=== PATIENT | female | born 1960 | race Caucasian/White ===

== ENCOUNTER → 2016-05-26 | Outpatient (CLI) | payer BC ==
[~2016-05-26] MED LIST: ADVIN50/60 INH; ALBUAER19 INH; ATEN50TA8 PO; CLON1TAB3 PO; DICY10CA12 PO; DICY20TA35 PO; ESCI10TA17 PO; ESCI1TAB10 PO; FLUT0.15 NAE; MOME6000; NIFE10CA20 PO; NSNN50 NAE; NXM/40 PO; PANT1TAB48 PO; RANI300T2 PO; SIMV20TA2 PO; SULF800T23 PO; TRET0.023 TD; VNTHFA/IN INH; [UNRECOGNIZED DRUG - CODE] TOP
[2016-05-26 13:20] LABS: BLOOD UREA NITROGEN 12 mg/dl (7-18); BUN/CREATININE RATIO 9.4 (10-20); CALCIUM 8.9 mg/dl (8.5-10.1); CARBON DIOXIDE 26 mmol/L (21-32); CHLORIDE 110 mmol/L (98-107); GLUCOSE 95 mg/dl (70-99); POTASSIUM 4.3 mmol/L (3.5-5.1); SODIUM 143 mmol/L (136-145)
[2016-05-26 13:40] LABS: ALB/GLOB RATIO 1.4 (0.9-2); ALKALINE PHOSPHATASE 52 U/L (45-117); ALT/SGPT 24 U/L (12-78); AST/SGOT 15 U/L (15-37); CHOLESTEROL 167 mg/dl (0-200); CHOLESTEROL/HDL RATIO 2.6; HDL CHOLESTEROL 65 mg/dl; LDL CHOLESTEROL CALCULATED 87 mg/dl; TRIGLYCERIDES 74 mg/dl (0-150); VERY LOW DENSITY LIPOPROT CALC 15 mg/dl
== END ==
LOC: C.LAB 10:11
PROVIDERS: ATTEND Physician Assistant
DX: E78.5 Hyperlipidemia, unspecified (principal)

== ENCOUNTER → 2016-06-23 | Outpatient (CLI) | payer BC ==
[2016-06-23 12:51] LABS: BASO % 0.7 %; BASO ABS # 0.05 K/uL (0-0.2); COMPLETE YES; EOS % 3.5 %; HEMATOCRIT 41.9 % (37-47); IG% 0.1 %; LYMPH % 45.1 %; LYMPH ABS # 3.07 K/uL (1.2-3.4); MEAN CELL VOLUME 92.9 fL (80-100); MEAN CORPUSCULAR HEMOGLOBIN 31.5 pg (25-34); MEAN CORPUSCULAR HGB CONC 33.9 g/dl (32-36); MEAN PLATELET VOLUME 11.3 fL (7.4-10.4); MONO % 8.4 %; NEUT % 42.2 %; PLATELET COUNT 254 K/uL (130-400); RED BLOOD COUNT 4.51 M/uL (4.2-5.4)
--- NOTE | 2016-06-23 12:55 | DIAGNOSTIC IMAGING REPORT ---
ABDOMEN 2 VIEWS CLINICAL HISTORY: K59.09,R10.52 pain COMPARISON STUDY: No previous studies for comparison. FINDINGS: Nonobstructive bowel pattern. Unremarkable mild component of fecal material throughout the colon. No evidence for fecal impaction. IMPRESSION: Negative abdomen. Unremarkable fecal load within the colon. Electronically signed by: Aly Fong M.D. 06/23/2016 12:54 PM Dictated Date/Time: 06/23/2016 12:53 PM
[2016-06-23 13:18] LABS: ALT/SGPT 22 U/L (12-78); BLOOD UREA NITROGEN 15 mg/dl (7-18); BUN/CREATININE RATIO 10.5 (10-20); CARBON DIOXIDE 27 mmol/L (21-32); CHLORIDE 106 mmol/L (98-107); GLUCOSE 85 mg/dl (70-99); POTASSIUM 4.2 mmol/L (3.5-5.1); SODIUM 139 mmol/L (136-145)
[2016-06-23 13:22] LABS: CALCIUM 9.5 mg/dl (8.5-10.1)
[2016-06-23 13:28] LABS: ALB/GLOB RATIO 1.5 (0.9-2); ALKALINE PHOSPHATASE 60 U/L (45-117); AST/SGOT 16 U/L (15-37)
== END | disposition home or self-care (01) ==
LOC: C.RAD 11:31
PROVIDERS: ATTEND Nurse Practitioner Family
DX: K59.09 Other constipation (principal); R10.2 Pelvic and perineal pain

== ENCOUNTER 2016-08-22 10:45 | Emergency (ER) | payer BC ==
[~2016-08-22] VITALS: Ht 167.6 cm; Wt 66.2 kg
[~2016-08-22 10:45] MED LIST changes: -DICY10CA12 PO; -DICY20TA35 PO; -FLUT0.15 NAE; -MOME6000; -NIFE10CA20 PO; -NXM/40 PO; -VNTHFA/IN INH; -[UNRECOGNIZED DRUG - CODE] TOP
[2016-08-22 10:52] VITALS: TEMP 36.8; Ht 167.6 cm; Wt 66.2 kg
[2016-08-22 11:47] LABS: BASO % 0.6 %; BASO ABS # 0.06 K/uL (0-0.2); COMPLETE YES; EOS % 6.5 %; HEMATOCRIT 40.8 % (37-47); IG% 0.2 %; LYMPH % 24.3 %; LYMPH ABS # 2.52 K/uL (1.2-3.4); MEAN CELL VOLUME 92.9 fL (80-100); MEAN CORPUSCULAR HGB CONC 33.3 g/dl (32-36); MEAN PLATELET VOLUME 11.1 fL (7.4-10.4); MONO % 8.6 %; NEUT % 59.8 %; PLATELET COUNT 231 K/uL (130-400); RED BLOOD COUNT 4.39 M/uL (4.2-5.4); WHITE BLOOD COUNT 10.37 K/uL (4.8-10.8)
[2016-08-22] MEDS ORDERED: MOME6000 (11:48)
[2016-08-22] MEDS ORDERED: VNTHFA/IN INH (11:48)
[2016-08-22] MEDS ORDERED: [UNRECOGNIZED DRUG - CODE] TOP (11:50)
[2016-08-22] MEDS ORDERED: NXM/40 PO (11:50)
[2016-08-22] MEDS ORDERED: NIFE10CA20 PO (11:50)
[2016-08-22 11:54] LABS: BUN/CREATININE RATIO 5.6 (10-20); CALCIUM 9.1 mg/dl (8.5-10.1); CREATININE 1.4 mg/dl (0.60-1.20); MAGNESIUM 2.3 mg/dl (1.8-2.4); POTASSIUM 3.9 mmol/L (3.5-5.1)
[2016-08-22 12:05] LABS: ALB/GLOB RATIO 1.4 (0.9-2); THYROID STIMULATING HORMONE 0.843 uIu/ml (0.300-4.500)
[2016-08-22 12:24] LABS: URINE APPEARANCE CLEAR (CLEAR); URINE BILIRUBIN NEG (NEG); URINE COLOR YELLOW; URINE NITRITE NEG (NEG); URINE SPECIFIC GRAVITY 1.008 (1.000-1.030); UROBILINOGEN NEG (NEG); ZZUR CULT IF INDIC CLEAN CATCH NO
[2016-08-22 12:29] LABS: MANUAL MICROSCOPIC REQUIRED? NO; REVIEW REQ? NO
--- NOTE | 2016-08-22 12:58 | DIAGNOSTIC IMAGING REPORT ---
ABDOMEN 2VIEW W/PA CHEST RTN HISTORY:55 yearsFemale acute abdominal pain with diarrhea and nausea. COMPARISON: Abdominal radiographs 06/23/2016. TECHNIQUE: Frontal view of the chest with erect and supine views of the abdomen. FINDINGS: Cardiomediastinal and hilar silhouettes are within normal limits. No pneumothorax, pleural effusion or focal airspace consolidation. Bones are intact. No gross pneumoperitoneum on the upright projection. Bowel gas pattern is nonobstructive. Phleboliths are seen within the pelvis. There is gentle convex left curvature of the lumbar spine. IMPRESSION: 1. Nonobstructive bowel gas pattern without pneumoperitoneum. 2. No acute cardiopulmonary process. The above report was generated using voice recognition software. It may contain grammatical, syntax or spelling errors. Electronically signed by: Maldonado Rivera 08/22/2016 12:57 PM Dictated Date/Time: 08/22/2016 12:55 PM
[2016-08-22] MEDS ORDERED: SODIUM CHLORIDE 0.9% 1000ML 1,000 ML IV STA (13:01)
[2016-08-22] MEDS ORDERED: KETOROLAC TROMETHAMINE 30 MG/ML VIAL IV STA (13:01)
[2016-08-22] MEDS ORDERED: DICYCLOMINE HCL 10 MG CAP PO ONE (13:15)
[2016-08-22] MEDS ORDERED: ONDANSETRON 8 MG/54 ML D5W IV ONE (13:15)
[2016-08-22 13:35] VITALS: O2SAT 96
--- NOTE | 2016-08-22 14:18 | EMERGENCY ROOM VISIT NOTE ---
History Report prepared by Estefanía: Willard Luu Under the Supervision of: Dr. Kristi Teague D.O. First contact with patient: 11:17 Chief Complaint: DIARRHEA Stated Complaint: SEVERE PAIN, BLOATING, DIARHEA Nursing Triage Summary: triage note: pt reprots abd bloating and diarrhea x 3 weeks. pt reports nausea and generalized abd pain. HX diverticulitus History of Present Illness The patient is a 55 year old female who presents to the Emergency Room with complaints of persistent diarrhea beginning three weeks ago. She also complains of abdominal bloating, fevers, chills, abdominal pain, low back pain, and weakness. She feels that she is very dehydrated. The patient describes her stool as "green". She notes that she has stage III kidney disease. She denies any recent travel, medication changes, or trauma. The patient has a history of constipation due to IBS. However has previously had a similar episode of diarrhea. She states that her GI doctor was concerned for C Diff. She notes that she was started on a laxative two months ago for her IBS, but stopped taking it due to the fact that it gave her diarrhea. The patient denies any urinary symptoms. She states that she has had some swelling in her leg, but states that it resolved after taking a water pill. Patient states she is not currently taking any obvious medications. Patient most concerned about her dehydration. Patient has not seen her GI doctor or family doctor within the last 3 weeks despite the persistence of her symptoms. Source of History: patient Onset: three weeks ago Quality: other (diarrhea) Timing: other (persistent) Associated Symptoms: + fevers, + chills, + abdominal pain, + back pain (low) , + weakness Note: The patient also complains of abdominal distension. Review of Systems See HPI for pertinent positives & negatives. A total of 10 systems reviewed and were otherwise negative. Past Medical & Surgical Medical Problems: (1) Asthma, Unspecified (2) Bipolar Disorder, Unspecified (3) Calculus Of Kidney (4) Diverticulitis (5) Diverticulosis (6) History of positive PPD (7) Hyperlipidemia Nec/Nos (8) Hypertension Nos (9) Mitral Valve Disorder (10) Stage III chronic kidney disease Family History FH: lung disease FHx: cancer Hypertension Social History Smoking Status: Current Every Day Smoker Alcohol Use: none Drug Use: none Marital Status: Occupation Status: disabled Current/Historical Medications Scheduled Atenolol (Tenormin), 50 MG PO BID Dicyclomine Hcl (Bentyl), 20 MG PO TID Erythromycin/Benzoyl Peroxide (Erythromycin/Benzoyl Chantelle 5-3 %), 1 APPLN TOP BID Escitalopram (Lexapro), 10 MG PO QAM Escitalopram Oxalate (Lexapro), 20 MG PO QAM Esomeprazole Magnesium (Nexium), 40 MG PO DAILY Nifedipine (Procardia), 10 MG PO BID Simvastatin (Zocor), 20 MG PO HS Scheduled PRN Albuterol Hfa (Ventolin Hfa), 2-4 PUFFS INH Q6H PRN for Wheezing Clonazepam (Klonopin), 1 MG PO BID PRN for PRN Fluticasone Prop/Salmeterol (Advair Diskus 500/50 60 Dose), 1 PUFF INH BID PRN for SOB/Wheezing Miscellaneous Medications Mometasone Furoate (Nasal) (Mometasone Furoate) Allergies Coded Allergies: Levofloxacin (Unverified Allergy, Severe, swelling tongue and throat per [facility], 08/22/16) Montelukast (Verified Allergy, Severe, THROAT SWELLS, 08/22/16) Venlafaxine (Unverified Allergy, Severe, edema airway per [facility] records, 08/22/16) PATIENT STATES TERRIBLE PAIN IN HEAD Gabapentin (Unverified Allergy, Unknown, PSYCH COMPLICATIONS, 08/22/16) Risperidone (Unverified Allergy, Unknown, EDEMA AIRWAY, 08/22/16) Azithromycin (Verified Adverse Reaction, Mild, "DOESN'T AGREE WITH ME", 11/29) Paroxetine (Verified Adverse Reaction, Mild, INCREASED PANIC ATTACKS, 08/22) Physical Exam Vital Signs Date Time Temp Pulse Resp B/P (MAP) Pulse Ox O2 Delivery O2 Flow Rate FiO2 08/22/16 14:40 63 20 123/60 08/22/16 13:35 63 17 126/59 96 Room Air 08/22/16 12:22 63 08/22/16 12:20 63 25 148/103 100 Room Air 08/22/16 10:52 36.8 69 18 128/76 98 Room Air Physical Exam GENERAL: alert, well appearing, well nourished, no distress, non-toxic EYE EXAM: normal conjunctiva, PERRL and EOM's grossly intact OROPHARYNX: no exudate, no erythema, lips, buccal mucosa, and tongue normal and mucous membranes are moist NECK: supple, no nuchal rigidity, no adenopathy, non-tender LUNGS: Clear to auscultation. Normal chest wall mechanics HEART: no murmurs, S1 normal and S2 normal ABDOMEN: abdomen soft, distended, non-tender, normo-active bowel sounds, no masses or organomegaly, no rebound or guarding. BACK: Back is symmetrical on inspection and there is no deformity, no midline tenderness, no CVA tenderness. SKIN: no rashes and no bruising UPPER EXTREMITIES: upper extremities are grossly normal. LOWER EXTREMITIES: No pitting edema. NEURO EXAM: Normal sensorium, cranial nerves II-XII grossly intact, normal speech, no gross weakness of arms, no gross weakness of legs. Medical Decision & Procedures ER Provider Diagnostic Interpretation: Radiology results have been interpreted by the radiologist and reviewed by me. ABDOMEN 2VIEW W/PA CHEST RTN FINDINGS: Cardiomediastinal and hilar silhouettes are within normal limits. No pneumothorax, pleural effusion or focal airspace consolidation. Bones are intact. No gross pneumoperitoneum on the upright projection. Bowel gas pattern is nonobstructive. Phleboliths are seen within the pelvis. There is gentle convex left curvature of the lumbar spine. IMPRESSION: 1. Nonobstructive bowel gas pattern without pneumoperitoneum. 2. No acute cardiopulmonary process. The above report was generated using voice recognition software. It may contain grammatical, syntax or spelling errors. Electronically signed by: Maldonado Rivera Laboratory Results 08/22/16 11:15 Red Blood Count 4.39, Mean Corpuscular Volume 92.9, Mean Corpuscular Hemoglobin 31.0, Mean Corpuscular Hemoglobin Concent 33.3, Mean Platelet Volume 11.1, Neutrophils (%) (Auto) 59.8, Lymphocytes (%) (Auto) 24.3, Monocytes (%) (Auto) 8.6, Eosinophils (%) (Auto) 6.5, Basophils (%) (Auto) 0.6, Neutrophils # (Auto) 6.21, Lymphocytes # (Auto) 2.52, Monocytes # (Auto) 0.89, Eosinophils # (Auto) 0.67, Basophils # (Auto) 0.06 08/22/16 11:15 Test 08/22/16 11:00 08/22/16 11:15 08/22/16 12:05 Urine Color YELLOW Urine Appearance CLEAR (CLEAR) Urine pH 6.0 (4.5-7.5) Urine Specific [place] 1.008 (1.000-1.030) Urine Protein NEG (NEG) Urine Glucose (UA) NEG (NEG) Urine Ketones NEG (NEG) Urine Occult Blood NEG (NEG) Urine Nitrite NEG (NEG) Urine Bilirubin NEG (NEG) Urine Urobilinogen NEG (NEG) Urine Leukocyte Esterase NEG (NEG) White Blood Count 10.37 K/uL (4.8-10.8) Red Blood Count 4.39 M/uL (4.2-5.4) Hemoglobin 13.6 g/dL (12.0-16.0) Hematocrit 40.8 % (37-47) Mean Corpuscular Volume 92.9 fL (80-100) Mean Corpuscular Hemoglobin 31.0 pg (25-34) Mean Corpuscular Hemoglobin Concent 33.3 g/dl (32-36) Platelet Count 231 K/uL (130-400) Mean Platelet Volume 11.1 fL (7.4-10.4) Neutrophils (%) (Auto) 59.8 % Lymphocytes (%) (Auto) 24.3 % Monocytes (%) (Auto) 8.6 % Eosinophils (%) (Auto) 6.5 % Basophils (%) (Auto) 0.6 % Neutrophils # (Auto) 6.21 K/uL (1.4-6.5) Lymphocytes # (Auto) 2.52 K/uL (1.2-3.4) Monocytes # (Auto) 0.89 K/uL (0.11-0.59) Eosinophils # (Auto) 0.67 K/uL (0-0.5) Basophils # (Auto) 0.06 K/uL (0-0.2) RDW Standard Deviation 47.0 fL (36.4-46.3) RDW Coefficient of Variation 13.7 % (11.5-14.5) Immature Granulocyte % (Auto) 0.2 % Immature Granulocyte # (Auto) 0.02 K/uL (0.00-0.02) Anion Gap 8.0 mmol/L (3-11) Est Creatinine Clear Calc Drug Dose 42.0 ml/min Estimated GFR () 48.6 Estimated GFR (Non- 41.9 BUN/Creatinine Ratio 5.6 (10-20) Calcium Level 9.1 mg/dl (8.5-10.1) Magnesium Level 2.3 mg/dl (1.8-2.4) Total Bilirubin 0.5 mg/dl (0.2-1) Aspartate Amino Transf (AST/SGOT) 17 U/L (15-37) Alanine Aminotransferase (ALT/SGPT) 19 U/L (12-78) Alkaline Phosphatase 60 U/L (45-117) Total Protein 7.1 gm/dl (6.4-8.2) Albumin 4.1 gm/dl (3.4-5.0) Globulin 3.0 gm/dl (2.5-4.0) Albumin/Globulin Ratio 1.4 (0.9-2) Lipase 170 U/L (73-393) Thyroid Stimulating Hormone (TSH) 0.843 uIu/ml (0.300-4.500) Lactic Acid Level 0.7 mmol/L (0.4-2.0) Laboratory results per my review. Medications Administered Medications (Trade) Dose Ordered Sig/Kate Route Start Time Stop Time Status Last Admin Dose Admin Sodium Chloride 1,000 ml @ 999 mls/hr Q1H1M STAT IV 08/22/16 13:01 08/22/16 14:01 DC 08/22/16 13:15 999 MLS/HR Ketorolac Tromethamine (Toradol Inj) 30 mg NOW STAT IV 08/22/16 13:01 08/22/16 13:04 DC 08/22/16 13:13 30 MG Dicyclomine HCl (Bentyl Cap) 20 mg NOW ONCE PO 08/22/16 13:15 08/22/16 13:16 DC 08/22/16 13:12 20 MG Ondansetron HCl (Zofran 8mg Iv) 8 mg NOW ONCE IV 08/22/16 13:15 08/22/16 13:16 DC 08/22/16 13:13 8 MG ED Course 1120: The patient was evaluated in room C6. A complete history and physical exam was performed. 1301: Ordered Toradol Inj 30 mg IV, Sodium Chloride 1000 ml @ 999 mls/hr IV. 1315: Ordered Zofran 8 mg IV, Bentyl Cap 20 mg PO. 1405: Upon reevaluation, the patient is feeling better. I discussed the findings and the treatment plan with the patient. She verbalizes agreement and understanding. The patient was discharged home. Medical Decision Differential diagnosis: Etiologies such as appendicitis, diverticulitis, PUD, biliary pathology, UTI, pancreatitis, obstruction, mesenteric ischemia, aortic pathology, infections, inflammatory bowel disease, renal colic, as well as others were entertained. Blood pressure screening: Patient was found to have a slightly elevated blood pressure due to circumstances. I do not believe that the patient requires hypertension monitoring. Medication Reconciliation: I attest that I have personally reviewed the patient' s current medication list. Patient well-appearing here despite complaints, not clinically severely dehydrated. Vital signs stable throughout. Patient with no episodes of diarrhea while monitored in the emergency room. Discussed with patient close follow-up with her GI specialist given her history of IBS and her complaints of diarrhea. Discussed possible need for additional imaging versus colonoscopy. Discussed with patient symptoms to watch and return for. Patient felt better following antispasmodic dictation, we'll discharge with prescription for Bentyl. No evidence of bacteremia/sepsis, patient's abdomen soft and nontender , doubt mesenteric ischemia, ischemic colitis, bowel obstruction, perforation, volvulus, GI bleed. Patient's labs not consistent with C. difficile. Patient verbalized understanding of all of this, questions answered bedside, and she was agreeable with plan. Impression Primary Impression: Abdominal pain Additional Impression: Diarrhea Scribe Attestation The scribe's documentation has been prepared under my direction and personally reviewed by me in its entirety. I confirm that the note above accurately reflects all work, treatment, procedures, and medical decision making performed by me. Departure Information Dispostion Home / Self-Care Prescriptions Dicyclomine Hcl (BENTYL) 20 Mg Tab 20 MG PO TID for Pain, #20 TAB Prov: Kristi Teague, 08/22/16 Referrals Rodolfo Toledo M.D. (PCP) Patient Instructions My [facility] Additional Instructions Please call and follow-up with your GI specialist regarding the persistence of your diarrhea. You may use the bowel spasm medication as prescribed. Please try to sip clear liquids at frequent intervals to stay well-hydrated. You may eat as tolerated. If you develop any worsening pain, have vomiting, noticed black or bloody stools, develop fevers or chills, feels though you're going to faint, or you have any other new concerns, please return the emergency room. Problem Qualifiers Primary Impression: Abdominal pain Abdominal location: generalized Qualified Codes: R10.84 - Generalized abdominal pain Additional Impression: Diarrhea Diarrhea type: unspecified type Qualified Codes: R19.7 - Diarrhea, unspecified
[2016-08-22] MEDS ORDERED: DICY20TA35 PO (14:26)
[2016-08-22 14:40] VITALS: BP 123/60; PULSE 63
[2016-10-07] MEDS ORDERED: DICY10CA12 PO (08:00)
[2016-10-07] MEDS ORDERED: FLUT0.15 NAE (08:00)
[2016-10-07] MEDS ORDERED: SULF800T23 PO (08:00)
== END 2016-08-22 14:45 | disposition home or self-care (01) ==
LOC: C.EDB 10:47 → C.EDC 14:45
DX: R10.9 Unspecified abdominal pain (principal); R19.7 Diarrhea, unspecified; E78.5 Hyperlipidemia, unspecified; I34.1 Nonrheumatic mitral (valve) prolapse; I12.9 Hypertensive chronic kidney disease with stage 1 through stage 4 chronic kidney disease, or unspecified chronic kidney disease; N18.3 Chronic kidney disease, stage 3 (moderate); F31.9 Bipolar disorder, unspecified; J45.909 Unspecified asthma, uncomplicated; K57.90 Diverticulosis of intestine, part unspecified, without perforation or abscess without bleeding; K57.92 Diverticulitis of intestine, part unspecified, without perforation or abscess without bleeding; F17.200 Nicotine dependence, unspecified, uncomplicated; Z79.899 Other long term (current) drug therapy; Z88.1 Allergy status to other antibiotic agents; Z88.8 Allergy status to other drugs, medicaments and biological substances; Z80.9 Family history of malignant neoplasm, unspecified; Z82.49 Family history of ischemic heart disease and other diseases of the circulatory system

== ENCOUNTER → 2016-08-24 | Outpatient (CLI) | payer BC ==
[~2016-08-24] MED LIST changes: -ALBUAER19 INH; +DICY10CA12 PO; +DICY20TA35 PO; +FLUT0.15 NAE; +MOME6000; +NIFE10CA20 PO; -NSNN50 NAE; +NXM/40 PO; -PANT1TAB48 PO; -RANI300T2 PO; -TRET0.023 TD; +VNTHFA/IN INH; +[UNRECOGNIZED DRUG - CODE] TOP
--- NOTE | 2016-08-24 09:35 | DIAGNOSTIC IMAGING REPORT ---
PA CHEST WITH ABDOMINAL SERIES CLINICAL HISTORY: Diarrhea. FINDINGS: A PA chest radiograph is compared to study dated 08/22/2016. The cardiomediastinal silhouette is unremarkable. The lungs and pleural spaces are clear. No pneumothorax is seen. The bony thorax is grossly intact. Supine and erect abdominal radiographs are compared to study dated 08/22/2016 and correlated with abdominal CT dated 03/27/2014. There is a nonobstructed abdominal bowel gas pattern. No evidence of intraperitoneal free air is seen. There are no abnormal abdominal calcifications. Phleboliths are observed in the pelvis. The lumbosacral spine and bony pelvis appear intact. IMPRESSION: 1. No active disease in the chest. 2. Nonobstructed abdominal bowel gas pattern. Electronically signed by: Bhavesh Telles M.D. 08/24/2016 9:34 AM Dictated Date/Time: 08/24/2016 9:31 AM
== END | disposition home or self-care (01) ==
LOC: C.RAD 08:46
PROVIDERS: ATTEND Internal Medicine Gastroenterology
DX: R19.7 Diarrhea, unspecified (principal)

== ENCOUNTER → 2016-10-11 | Outpatient (CLI) | payer BC ==
[~2016-10-11] MED LIST changes: -DICY20TA35 PO; -ESCI10TA17 PO; -MOME6000
--- NOTE | 2016-10-11 16:08 | MAMMOGRAPHY REPORT ---
BILATERAL DIGITAL SCREENING MAMMOGRAM WITH CAD: 10/11/2016 CLINICAL HISTORY: Routine screening. Patient has no complaints. TECHNIQUE: Bilateral CC and MLO views of the breasts with and without implant displacement views were obtained. Current study was also evaluated with a Computer Aided Detection (CAD) system. COMPARISON: Comparison is made to exams dated: 10/09/2015 mammogram, 10/06/2014 mammogram, 03/13/2014 m ammogram, 09/02/2013 mammogram, 08/31/2012 mammogram, and 08/31/2011 mammogram - [facility]. BREAST COMPOSITION: There are scattered areas of fibroglandular density in both breasts. FINDINGS: Bilateral subpectoral saline implants are intact. There are stable benign-appearing calci fications in both breasts. No new suspicious mass, architectural distortion or cluster of microcalci fications is seen. IMPRESSION: ACR BI-RADS CATEGORY 1: NEGATIVE There is no mammographic evidence of malignancy. A 1 year screening mammogram is recommended. The pa tient will receive written notification of the results. Approximately 10% of breast cancers are not detected with mammography. A negative mammographic report should not delay biopsy if a clinically suggestive mass is present. Tabby Rosales M.D. ay/:10/11/2016 15:04:39 Timber Setter: Citlali CAIN)(Suzette)(BD), [facility] letter sent: Normal 1/2 BI-RADS Code: ACR BI-RADS Category 1: Negative
== END | disposition home or self-care (01) ==
LOC: C.MAMM 09:34
PROVIDERS: ATTEND Family Medicine
DX: Z12.31 Encounter for screening mammogram for malignant neoplasm of breast (principal)

== ENCOUNTER → 2016-10-13 | Outpatient (CLI) | payer BC ==
--- NOTE | 2016-10-13 10:31 | DIAGNOSTIC IMAGING REPORT ---
KUB CLINICAL HISTORY: Abdominal pain and distention. COMPARISON STUDY: 08/24/2016 FINDINGS: There is no pathologic bowel dilatation. There are no transition zone to indicate bowel obstruction. The renal shadows are partially obscured overlying bowel gas and fecal material. No definite renal calculi are visualized. Multiple pelvic basin calcifications remain similar and likely represent phleboliths. IMPRESSION: No evidence of pathologic bowel dilatation. Electronically signed by: Gustavo Rosas M.D. 10/13/2016 10:30 AM Dictated Date/Time: 10/13/2016 10:29 AM
== END | disposition home or self-care (01) ==
LOC: C.RAD 09:48
PROVIDERS: ATTEND Nurse Practitioner Family
DX: R10.9 Unspecified abdominal pain (principal); K59.00 Constipation, unspecified; R19.7 Diarrhea, unspecified

== ENCOUNTER → 2016-10-19 | Day surgery (SDC) | payer BC ==
[2016-10-07 08:01] VITALS: Ht 165.1 cm; Wt 61.4 kg
[~2016-10-19] VITALS: Ht 165.1 cm; Wt 61.4 kg
[~2016-10-19] MED LIST changes: +LIDOCAINE HCL 2% 2 ML VIAL (20MG/ML) ONE; +PROPOFOL IV EMULSION 10 MG/ML 20 ML VIAL IV ONE; +SODIUM CHLORIDE 0.9% 500ML 500 ML IV ONE
--- NOTE | 2016-10-19 09:21 | Endo History and Physical ---
History & Physical Date of Service: Oct 19, 2016. Chief Complaint: chronic diarrhea,epigastric pain and nausea,vomiting Referring Physician: Dr. Rodolfo Toledo History of Present Illness 56 yo presenting with c/o chronic nausea, vomiting, and diarrhea. No alarm symptoms. Past Medical History Other Psy. Disorders, Asthma, Gastrointestinal Disorder, Anxiety, Reflux, Gynecological Problems, High Cholesterol, Heart Disease, Hypertension, Kidney Disease, Depression Past Surgical History Hx Cardiac Surgery: No Hx Internal Defibrillator: No Hx Pacemaker: No Hx Abdominal Surgery: Yes (TUBAL LIGATION) Hx of Implantable Prosthesis: No Hx Post-Op Nausea and Vomiting: No Hx Cancer Surgery: No Hx Thoracic Surgery: No Hx Orthopedic: No Hx Urinary Tract Surgery: No Family History None Social History Smoking Status: Current Every Day Smoker Hx Substance Use: No Hx Alcohol Use: No Allergies Coded Allergies: Levofloxacin (Verified Allergy, Severe, swelling tongue and throat per [facility], 10/19/16) Montelukast (Verified Allergy, Severe, THROAT SWELLS, 10/07/16) Venlafaxine (Verified Allergy, Severe, edema airway per [facility] records, 10/19/16) PATIENT STATES TERRIBLE PAIN IN HEAD Gabapentin (Verified Allergy, Unknown, PSYCH COMPLICATIONS, 10/19/16) Risperidone (Verified Allergy, Unknown, EDEMA AIRWAY, 10/19/16) Azithromycin (Verified Adverse Reaction, Mild, "DOESN'T AGREE WITH ME", ) Paroxetine (Verified Adverse Reaction, Mild, INCREASED PANIC ATTACKS, 10/07) Current Medications Reported Home Medications Medications Dose Route/Sig Max Daily Dose Days Date Category Flonase Allergy Relief (Fluticasone Propionate (Nasal)) 50 Mcg/Act Spr 2 [place] LUZ DAILY 10/07/16 Reported Dicyclomine Hcl 10 Mg Cap 1 Cap PO TID PRN 10/07/16 Reported Bactrim Ds 800MG/160MG (Trimethoprim/Sulfamethoxazole) Tab 1 Tab PO BID 10/07/16 Reported Erythromycin/Benzoyl Chantelle 5-3 % (Erythromycin/Benzoyl Peroxide) 23.3 Gm Gel 1 Appln TOP BID 08/22/16 Reported Procardia (Nifedipine) 10 Mg Cap 10 Mg PO TID 08/22/16 Reported Nexium (Esomeprazole Magnesium) 40 Mg Capcr 40 Mg PO QAM 08/22/16 Reported Ventolin Hfa (Albuterol) 200 Puffs/13064 Mcg Aers 2-4 Puffs INH Q6H PRN 08/22/16 Reported Lexapro (Escitalopram Oxalate) 20 Mg Tab 1.5 Tab PO QAM 12/25/14 Reported Advair Diskus 500/50 60 Dose (Fluticasone Prop/Salmeterol) 1 Ea Aerp 1 Puff INH BID PRN 04/28/13 Reported Zocor (Simvastatin) 20 Mg Tab 20 Mg PO HS 01/12/11 Reported Tenormin (Atenolol) 50 Mg Tab 50 Mg PO BID 11/16/09 Reported Klonopin (Clonazepam) 1 Mg Tab 1 Mg PO TID PRN 10/22/09 Reported Vital Signs Weight (Kilograms): 61.36 Height (Feet): 5 Height (Inches): 5 Date Time Temp Pulse Resp B/P (MAP) Pulse Ox O2 Delivery O2 Flow Rate FiO2 10/19/16 09:08 36.8 50 18 130/67 (88) 98 Room Air Physical Exam General Appearance: WD/WN, no apparent distress Respiratory/Chest: Respiratory effort: no dyspnea Auscultation: breath sounds normal, CTA except as noted, no wheezing Cardiovascular: Apical Impulse: not displaced Heart Auscultation: RRR, normal S1, normal S2 Abdomen: Bowel Sounds: normal Inspection & Palpation: soft, non-distended Assessment and Plan 56 yo presenting for EGD/Colonoscopy-for nausea, vomiting, and diarrhea
--- NOTE | 2016-10-19 09:59 | Discharge Instructions ---
Endoscopy Patient Instructions Date / Procedure(s) Performed Oct 19, 2016. Colonoscopy, EGD Allergy Information Coded Allergies: Levofloxacin (Verified Allergy, Severe, swelling tongue and throat per [facility], 10/19/16) Montelukast (Verified Allergy, Severe, THROAT SWELLS, 10/07/16) Venlafaxine (Verified Allergy, Severe, edema airway per [facility] records, 10/19/16) PATIENT STATES TERRIBLE PAIN IN HEAD Gabapentin (Verified Allergy, Unknown, PSYCH COMPLICATIONS, 10/19/16) Risperidone (Verified Allergy, Unknown, EDEMA AIRWAY, 10/19/16) Azithromycin (Verified Adverse Reaction, Mild, "DOESN'T AGREE WITH ME", ) Paroxetine (Verified Adverse Reaction, Mild, INCREASED PANIC ATTACKS, 10/07) Discharge Date / Findings Oct 19, 2016. Normal EGD-biopsies were taken Colonoscopy-average prep quality, diverticula and hemorrhoids Provider Instructions Activity Restrictions - No exercising or heavy lifting for 24 hours. - Do not drink alcohol the day of the procedure. - Do not drive a car or operate machinery until the day after the procedure. - Do not make any important decisions or sign important papers in 24 hours after the procedure. Following Day: - Return to full activity which may include returning to work/school. Diet Start your diet with liquids and light foods (jello, soup, juice, toast). Then eat your usual diet if not nauseated. Treatment For Common After Affects For mild abdominal pain, bloating, or excessive gas: - Rest - Eat lightly - Lie on right side Follow-Up Information Follow-up with Dr. Rodolfo Toledo as scheduled Anesthesia Information What You Should Know You have had a procedure that required some medicine to reduce anxiety and discomfort. This treatment is called moderate sedation. After receiving the treatment, you may be sleepy, but you will be able to breathe on your own. The effects of the treatment may last for several hours. Follow these instructions along with Activity/Diet recommendations noted above: * Do NOT do anything where dizziness or clumsiness would be dangerous. * Rest quietly at home today, then you can be up and about tomorrow. * Have a responsible person stay with you the rest of today. * You may have had an I.V. today. If so, you may take the dressing off later today. Recommendations Call your doctor if: * Trouble breathing * Continuous vomiting for more than 24 hours * Temperature above 101 degrees * Severe abdominal pain or bloating * Pain not relieved by pain medicine ordered * There is increased drainage or redness from any incision * A large amount of rectal bleeding greater than 2-3 tablespoons. (If you had a polyp/s removed or have hemorrhoids, a small amount of blood - from the rectum is to be expected.) * You have any unanswered questions or concerns. IN THE EVENT OF A SERIOUS EMERGENCY, GO TO THE NEAREST EMERGENCY ROOM Your discharge instructions were prepared by provider Jean-Claude Carrasco. Patient Instructions Signature Page Mary [place] Patient (or Guardian) Signature/Date: I have read and understand the instructions given to me by my caregivers. Caregiver/RN/Doctor Signature/Date: The above-named patient and/or guardian has received patient instructions on this date. + Original Patient Signature Page (only) stays with chart. Please make copy for patient.
--- NOTE | 2016-10-19 10:02 | GI REPORT ---
Procedure Date: 10/19/2016 9:14 AM Procedure: Upper GI endoscopy Indications: Nausea with vomiting Medicines: General Anesthesia Complications: No immediate complications. Estimated blood loss: None. Estimated Blood Loss: Estimated blood loss: none. Procedure: Pre-Anesthesia Assessment: - Pre-Anesthesia Assessment: - Prior to the procedure, a History and Physical was performed, and patient medications, allergies and sensitivities were reviewed. The patient's tolerance of previous anesthesia was reviewed. Please see [employer] for complete details. - The risks and benefits of the procedure and the sedation options and risks were discussed with the patient. All questions were answered and informed consent was obtained. - Patient identification and proposed procedure were verified prior to the procedure by the physician and the nurse. The procedure was verified in the pre-procedure area in the procedure room. After obtaining informed consent, the endoscope was passed carefully and meticuously under direct vision and only advanced when the lumen was clearly identified, C02 insuflation was utilized throughout the entirity of the procedure. Throughout the procedure, the patient's blood pressure, pulse, and oxygen saturations were monitored continuously. After obtaining informed consent, the endoscope was passed under direct vision. Throughout the procedure, the patient's blood pressure, pulse, and oxygen saturations were monitored continuously. The scope was introduced through the mouth, and advanced to the second part of duodenum. The upper GI endoscopy was accomplished without difficulty. The patient tolerated the procedure well. Findings: The examined esophagus was normal. The entire examined stomach was normal. Biopsies were taken with a cold forceps for histology. The examined duodenum was normal. Biopsies for histology were taken with a cold forceps for evaluation of celiac disease. Impression: - Normal esophagus. - Normal stomach. Biopsied. - Normal examined duodenum. Biopsied. Recommendation: - Await pathology results. - Discharge patient to home (with escort). - Continue present medications and diet. Jean-Claude Carrasco MD 10/19/2016 10:01:50 AM This report has been signed electronically. Note Initiated On: 10/19/2016 9:14 AM I attest to the content of the Intraoperative Record and orders documented therein, exceptions below
--- NOTE | 2016-10-19 10:05 | GI REPORT ---
Procedure Date: 10/19/2016 9:37 AM Procedure: Colonoscopy Indications: Chronic diarrhea Medicines: General Anesthesia Complications: No immediate complications. Estimated blood loss: None. Estimated Blood Loss: Estimated blood loss: none. Procedure: Pre-Anesthesia Assessment: - Pre-Anesthesia Assessment: - Prior to the procedure, a History and Physical was performed, and patient medications, allergies and sensitivities were reviewed. The patient's tolerance of previous anesthesia was reviewed. Please see [facility] for complete details. - The risks and benefits of the procedure and the sedation options and risks were discussed with the patient. All questions were answered and informed consent was obtained. - Patient identification and proposed procedure were verified prior to the procedure by the physician and the nurse. The procedure was verified in the pre-procedure area in the procedure room. After obtaining informed consent, the endoscope was passed carefully and meticuously under direct vision and only advanced when the lumen was clearly identified, C02 insuflation was utilized throughout the entirity of the procedure. Throughout the procedure, the patient's blood pressure, pulse, and oxygen saturations were monitored continuously. After I obtained informed consent, the scope was passed under direct vision. Throughout the procedure, the patient's blood pressure, pulse, and oxygen saturations were monitored continuously. The scope was introduced through the anus and advanced to the cecum, identified by appendiceal orifice and ileocecal valve. The colonoscopy was performed without difficulty. The patient tolerated the procedure well. The quality of the bowel preparation was fair. Findings: Multiple small-mouthed diverticula were found in the sigmoid colon. Internal hemorrhoids were found during retroflexion. Biopsies for histology were taken with a cold forceps from the entire colon for evaluation of microscopic colitis. The exam was otherwise without abnormality on direct and retroflexion views. Impression: - Diverticulosis in the sigmoid colon. - Internal hemorrhoids. - The examination was otherwise normal on direct and retroflexion views. - Biopsies were taken with a cold forceps from the entire colon for evaluation of microscopic colitis. Recommendation: - Discharge patient to home (with escort). - Repeat colonoscopy in 10 years for screening purposes. - Return to referring physician as previously scheduled. - Consider fiber supplementation. Jean-Claude Carrasco MD 10/19/2016 10:04:31 AM This report has been signed electronically. Note Initiated On: 10/19/2016 9:37 AM I attest to the content of the Intraoperative Record and orders documented therein, exceptions below
[2016-10-19 10:27] VITALS: BP 139/76; PULSE 54; O2SAT 100
--- NOTE | 2016-10-19 10:45 | Anesthesiology Progress Note ---
Anesthesia Post Op Note Date & Time Oct 19, 2016 at 10:45 Vital Signs Pain Intensity: 3 Vital Signs Past 12 Hours Date Time Temp Pulse Resp B/P (MAP) Pulse Ox O2 Delivery O2 Flow Rate FiO2 10/19/16 10:27 54 16 139/76 (97) 100 Room Air 10/19/16 10:12 62 16 119/70 (86) 100 Room Air 10/19/16 09:57 54 16 104/64 (77) 98 Room Air 10/19/16 09:08 36.8 50 18 130/67 (88) 98 Room Air Notes Mental Status: alert / awake / arousable, participated in evaluation Pt Amnestic to Procedure: Yes Nausea / Vomiting: adequately controlled Pain: adequately controlled Airway Patency, RR, SpO2: stable & adequate BP & HR: stable & adequate Hydration State: stable & adequate Anesthetic Complications: no major complications apparent
== END | disposition home or self-care (01) ==
LOC: C.GI 08:39
PROVIDERS: ATTEND Internal Medicine
DX: K52.9 Noninfective gastroenteritis and colitis, unspecified (principal); K64.8 Other hemorrhoids; K63.89 Other specified diseases of intestine; K57.30 Diverticulosis of large intestine without perforation or abscess without bleeding; R10.13 Epigastric pain; R11.2 Nausea with vomiting, unspecified; K21.9 Gastro-esophageal reflux disease without esophagitis; E78.00 Pure hypercholesterolemia, unspecified; I12.9 Hypertensive chronic kidney disease with stage 1 through stage 4 chronic kidney disease, or unspecified chronic kidney disease; N18.9 Chronic kidney disease, unspecified; F32.9 Major depressive disorder, single episode, unspecified; F17.200 Nicotine dependence, unspecified, uncomplicated

== ENCOUNTER 2018-11-28 13:07 | Inpatient (IN) ==
[2018-11-28] MEDS ORDERED: ACETAMINOPHEN 325 MG TAB PO PRN (13:28)
[2018-11-28] MEDS ORDERED: ALBUTEROL HFA 8 GM INHALER INH PRN (14:47)
[2018-11-28] MEDS ORDERED: CYCLOBENZAPRINE HCL 10 MG TAB PO PRN (14:47)
[2018-11-28] MEDS ORDERED: DICYCLOMINE HCL 10 MG CAP PO PRN (14:47)
--- NOTE | 2018-11-28 14:58 | History & Physical Report ---
Date of Service November 28, 2018 Assessment & Plan (1) Diverticulitis: (2) Abdominal pain: Pt is 58 y/o F with PMH HTN, dyslipidemia, bipolar depression, CKD III, GERD, h/o lymphocytic colitis, asthma presented for abdominal pain and diverticulitis x 1 month. Initially with fever/chills. N/V, lower abddominal pain has continued. 10/26/[address] abdomen pelvis which showed possible diverticulitis and was started on Augmentin 875 twice daily. 10/29/2018 Flagyl was added. 11/20/2018 still having lower quadrant pain and was started on Cipro and Flagyl and had WBC:10. 11/22/[address] abdomen pelvis which showed diverticulitis descending colon with no abscess or perforation noted. Today Pt afebrile, vitals stable. WBC: 8. KUB: Nonobstructive bowel gas pattern. -Stool cultures pending -IVF -Zosyn -Stool cultures, C-diff pending -Clear liquid diet -If no improvement or worsening symptoms obtain further imaging, however will hold on CT abd/pelvis since has had 2 in past month -GI consult -CBC, BMP in am (3) Lymphocytic colitis: H/O lymphocytic colitis. Hx esophageal spasms. -Continue nifedipine (4) HTN (hypertension): -Continue atenolol (5) Dyslipidemia: -Continue statin (6) Stage III chronic kidney disease: Cr: 1.2. Baseline Cr ~1.1 -Monitor renal functions -Avoid nephrotoxic agents when possible (7) Asthma: Stable -Continue Advair, Singulair. Continue albuterol (8) GERD (gastroesophageal reflux disease): -Continue PPI (9) Bipolar depression: -Continue Lexapro, Klonopin HS (10) Tobacco use: Reports has cut back to several cigarettes a day -Nicotine patch -Smoking cessation encouraged DVT Prophylaxis -SCDs Follows with Dr Zhang for routine care Pt was seen and care coordinated with Dr Santos. See addendum History of Present Illness Chief Complaint: Abdominal pain Primary Care Provider: Vishnu Zhang MD Pt is 58 y/o F with PMH HTN, dyslipidemia, bipolar depression, CKD III, GERD, h/o lymphocytic colitis, asthma presented as direct admission for abdominal pain and diverticulitis. Patient was seen in ER on 10/26/2018 for fever, chills, nausea, vomiting, left flank pain and had CT abdomen pelvis which showed possible diverticulitis and was started on Augmentin 875 twice daily. Patient states took that for a few days. Followed up with PCP 10/29/2018 for continued lower abdominal pain and Flagyl was added. Seen by PCP 11/20/2018 still having lower quadrant pain and was started on Cipro and Flagyl and had WBC:10. 11/22/[address] abdomen pelvis which showed diverticulitis descending colon with no abscess or perforation noted. Patient reports has had continued lower abdominal pain which she describes as fairly consistent with intermittent sharp episodes. Also reports lower back aching which has been intermittent. Reports nausea and intermittent vomiting. Complains of diarrhea. Initially had fever in October which has resolved but reports continued chills. Reports in past has had abdominal bloating with colitis. States taking nifedpine for throat spasms. Denies diaphoresis, hematemesis, melena, hematochezia, CALDERA, dizziness, syncope, vision changes, neck pain, CP, SOB, orthopnea, palpitations, cough, sore throat, choking, otalgia, rhinorrhea, paresthesias, weakness, extremity weakness, extremity edema, rashes, urinary symptoms. 10/19/2016: Colonoscopy: Multiple diverticula in sigmoid colon, internal hemorrh oids 10/19/2016: EGD: Normal esophagus and stomach and duodenum. Allergies Allergy/AdvReac Type Severity Reaction Status Date / Time levofloxacin Allergy Severe swelling Verified 10/26/18 11:42 tongue [address] throat [address] [facility] montelukast Allergy Severe THROAT Verified 10/26/18 11:42 SWELLS venlafaxine Allergy Severe edema Verified 10/26/18 11:42 airway per [facility] records gabapentin Allergy Unknown PSYCH Verified 10/26/18 11:42 COMPLICATIONS risperidone Allergy Unknown EDEMA Verified 10/26/18 11:42 AIRWAY mivacurium AdvReac Mild "DOESN'T Verified 10/26/18 11:42 AGREE WITH ME" paroxetine AdvReac Mild INCREASED Verified 10/26/18 11:42 PANIC ATTACKS Azithromycin PACK Allergy Unknown Uncoded 10/26/18 11:42 Home Medications Home Medications Medication Instructions Recorded Confirmed Type atenolol 50 mg PO BID 10/26/18 11/28/18 History dicyclomine 10 mg PO TID PRN 10/26/18 11/28/18 History fluticasone propionate 2 spray INTRANASAL DAILY 10/26/18 11/28/18 History ondansetron HCl [Zofran] 4 mg PO Q6H PRN #10 tab 10/26/18 11/28/18 Rx rosuvastatin 20 mg PO HS 10/26/18 11/28/18 History albuterol sulfate 2 puff INHALATION QID PRN 11/28/18 11/28/18 History clonazepam 2 mg PO HS 11/28/18 11/28/18 History cyclobenzaprine 10 mg PO HS PRN 11/28/18 11/28/18 History escitalopram oxalate 20 mg PO DAILY 11/28/18 11/28/18 History esomeprazole magnesium 40 mg PO DAILY 11/28/18 11/28/18 History fluticasone propion-salmeterol 2 inh INHALATION DAILY 11/28/18 11/28/18 History [Advair Diskus] montelukast 10 mg PO PM 11/28/18 11/28/18 History nifedipine 10 mg PO TIDM 11/28/18 11/28/18 History Past Med/Surg History Medical History Tobacco use (Chronic) Lymphocytic colitis (Chronic) GERD (gastroesophageal reflux disease) (Chronic) Bipolar depression (Chronic) Dyslipidemia (Chronic) HTN (hypertension) (Chronic) Asthma (Chronic) Adnexal mass (Resolved) "? dermoid noted on CT pelvis 11/14/13" History of positive PPD (Chronic) "treated with ? INH" Diverticulosis (Chronic) Abdominal pain (Acute) Stage III chronic kidney disease (Chronic) Surgical History Hx of tonsillectomy (Chronic) History of esophagogastroduodenoscopy (EGD) (Chronic) 10/19/16 - normal esophagus, stomach and duodenum History of colonoscopy (Chronic) 10/19/16 - multiple diverticula in sigmoid colon, internal hemorrhoids No pertinent past surgical history Family History Other Cancer Heart disease Hypertension Kidney disease Social History Preferred Language: Sammarinese Communication Ability: Effective Dental Floss Packer Required: No Beliefs That Will Affect Care: None Current Living Situation: Spouse Other Information That Helps Us Care for You: No Feels Safe at Home: Yes Safety Concerns: Feels Safe At This Time Smoking Status: Current every day smoker Tobacco Type: cigarettes ; Cigarettes Per Day: 4-5 a day ; Do You Dip or Chew Tobacco: No ; Second Hand Exposure: No ; Tobacco Cessation Education Requested by Patient: No Hx Alcohol Use: No Hx Substance Use: No Review of Systems Review of Systems: All systems reviewed & are unremarkable except as noted in HPI & below Physical Exam Physical Exam: General: no distress, WDWN Head: normocephalic, atraumatic Eyes: conjunctiva non-injected, anicteric ENT: normal inspection external ears, nose, mucous membranes moist Neck: supple, trachea midline Lungs: clear, no respiratory distress, no wheezing/rhonchi/rales CV: RRR, no murmur, no pretibial edema Abd: normal BS, soft, diffuse tenderness to palpation Ext: no cyanosis, no calf tenderness Neuro: A&O x 3, no focal deficits noted, normal affect Skin: warm, dry Results & Data Vital Signs (Past 12 Hours) Vital Signs Temp Pulse Resp BP Pulse Ox 11/28/18 14:32 37 C 53 L 16 138/79 98 Laboratory Results Short CBC 11/28/18 Range/Units 14:54 WBC 8.21 (4.8-10.8) K/uL Hgb 14.0 (12.0-16.0) g/dL Hct 41.4 (37-47) % Plt Count 254 (130-400) K/uL BMP 11/28/18 14:54 Sodium 138 Potassium 3.6 Chloride 107 Carbon Dioxide 26 BUN 13 Creatinine 1.25 H Glucose 81 Calcium 9.0 Liver Function 11/28/18 Range/Units 14:54 Total Bilirubin 0.4 (0.2-1) mg/dl AST 18 (15-37) U/L ALT 17 (12-78) U/L Alkaline Phosphatase 55 (45-117) U/L Albumin 3.7 (3.4-5.0) gm/dl Diagnostic Findings KUB: IMPRESSION: Nonobstructive bowel gas pattern. Code Status & VTE Plan VTE Prophylaxis Plan VTE Prophylaxis will be ordered: Yes Supervising Physician Co-Signing Physician Notes Patient is a 58-year-old female with history of lymphocytic colitis, bipolar disorder, depression and other problems presents with history of abdominal pain, nausea, vomiting, diarrhea, abdominal bloating and chills. Patient has been on Augmentin and later transitioned to Cipro floxacillin and Flagyl by PCP for uncomplicated diverticulitis noted on CAT scan. Patient states that her symptoms have not resolved despite the antibiotics. Currently she denies any blood in stools. Please review HPI for complete details of presentation. On exam patient is moderately built and nourished, no apparent distress, normocephalic atraumatic, lungs are clear to auscultation, S1-S2, no murmur, abdomen soft, diffuse tenderness on palpation, no guarding or rigidity, bowel sounds are present, grossly no focal neurological deficits, no pedal edema. Patient is admitted for management of diverticulitis. Failed outpatient antibiotic therapy. Agree with IV fluids, Zosyn, clear liquid diet. Will check stools to rule out C. difficile. KUB showed nonobstructive bowel gas pattern. Consider repeat CT abdomen if no resolution of symptoms above management. Also noted sinus bradycardia. May need to adjust her home atenolol dose if heart rate continues to be significantly low. I personally reviewed the record. Patient is interviewed and examined at bedside. Patient's care is coordinated with Marcia Wilde PA-C. Please refer to the documentation above for details of patient's presentation and for discussion of other issues.
[2018-11-28] MEDS ORDERED: PATIENT'S HEIGHT AND/OR WEIGHT NEEDED SCH (15:00)
[2018-11-28] MEDS ORDERED: PIPERACILL/TAZOBAC CONSULT ACTIVE SCH (15:08)
[2018-11-28 15:14] LABS: Basophils # (auto) 0.05 K/uL (0-0.2); Basophils % (auto) 0.6 %; Eosinophils # (auto) 0.31 K/uL (0-0.5); Eosinophils % (auto) 3.8 %; Hematocrit (blood only) 41.4 % (37-47); Immature Granulocytes # (auto) 0.01 K/uL (0.00-0.02); Immature Granulocytes % (auto) 0.1 %; Lymphocytes # (auto) 3.19 K/uL (1.2-3.4); Lymphocytes % (auto) 38.9 %; Mean Corpuscular Hemoglobin 31.7 pg (25-34); Mean Corpuscular Hgb Conc 33.8 g/dL (32-36); Mean Corpuscular Volume 93.7 fL (80-100); Monocytes # (auto) 0.58 K/uL (0.11-0.59); Monocytes % (auto) 7.1 %; Neutrophils # (auto) 4.07 K/uL (1.4-6.5); Neutrophils % (auto) 49.5 %; Platelet Count 254 K/uL (130-400); RDW Coefficient of Variation 12.9 % (11.5-14.5); RDW Standard Deviation 44.5 fL (36.4-46.3); Red Blood Count 4.42 M/uL (4.2-5.4); White Blood Count 8.21 K/uL (4.8-10.8)
[2018-11-28] MEDS ORDERED: PIPERACILLIN/TAZOBACTAM 3.375 GM in DEXTROSE 5% 100 ML IV ONE (15:30)
[2018-11-28 15:32] LABS: Albumin Level 3.7 gm/dl (3.4-5.0); BUN Creatinine Ratio 10.6 (10-20); Creatinine Clr Calc Pharmacy 45.4 ml/min; Est GFR (African American) 54.5; Partial Thromboplastin Time 28.2 Seconds (21.0-31.0); Potassium 3.6 mmol/L (3.5-5.1); Prothrombin Time 10.5 Seconds (9.0-12.0)
--- NOTE | 2018-11-28 15:34 | XRay Report ---
KUB HISTORY: Acute generalized abdominal pain abdominal pain COMPARISON: CT abdomen and pelvis 10/26/2018 FINDINGS: The bowel gas pattern is non-obstructive. There is no organomegaly. No renal calculi. No u reteral calculi. No pneumoperitoneum or pneumatosis. Multiple pelvic basin calcifications suggestive of phleboliths. Convex left curvature of the lumbar spine with multilevel degenerative changes. No fr acture. IMPRESSION: Nonobstructive bowel gas pattern. Electronically signed by: Maldonado Rivera M.D. 11/28/2018 3:33 PM
[2018-11-28 15:35] LABS: Albumin Globulin Ratio 1.1 (0.9-2); Bilirubin,Total 0.4 mg/dl (0.2-1); Globulin 3.4 gm/dl (2.5-4.0); Total Protein 7.1 gm/dl (6.4-8.2)
[2018-11-28] MEDS: SODIUM CHLORIDE 0.9% 1000ML 1,000 ML IV SCH ×2 (15:47→23:40)
[2018-11-28] MEDS: NICOTINE 14 MG/24 HR PATCH TD SCH (15:47)
[2018-11-28] MEDS: HYDROmorphone INJ 0.5 MG/0.5 ML SYR IV PRN ×2 (15:54→20:35)
[2018-11-28] MEDS: NIFEdipine 10 MG CAP PO SCH (17:52)
[2018-11-28] MEDS: clonazePAM 1 MG TAB PO SCH (20:36)
[2018-11-28] MEDS: PIPERACILLIN/TAZOBACTAM 3.375 GM in DEXTROSE 5% 100 ML IV SCH (20:36)
[2018-11-28] MEDS: ATENOLOL 50 MG TABLET PO SCH (20:36)
[2018-11-28] MEDS: ROSUVASTATIN CALCIUM 20 MG TAB PO SCH (20:36)
[2018-11-28] MEDS: FLUTICASONE/SALMETEROL (ADVAIR) 500/50 INH 14 PUFF INH SCH (20:36)
[2018-11-28] MEDS: MONTELUKAST SODIUM 10 MG TABLET PO SCH (20:36)
[2018-11-28] MEDS ORDERED: LORazepam 1 MG TAB PO STA (22:19)
[2018-11-28 22:29] LABS: Appearance Urine Clear (Clear); Bilirubin Urine Negative (Negative); Blood Urine Negative (Negative); Color Urine Yellow; Glucose Urine UA Negative (Negative); Ketones Urine Negative (Negative); Leukocyte Esterase Urine Negative (Negative); Nitrite Urine Negative (Negative); Protein Urine Negative (Negative); Specific Gravity Urine 1.012 (1.000-1.030); Urobilinogen Urine Negative (Negative)
[2018-11-29] MEDS: PIPERACILLIN/TAZOBACTAM 3.375 GM in DEXTROSE 5% 100 ML IV SCH ×3 (04:58→20:08)
[2018-11-29 06:50] LABS: Hematocrit (blood only) 37.6 % (37-47); Hemoglobin 12.5 g/dL (12.0-16.0); Mean Corpuscular Hemoglobin 31.1 pg (25-34); Mean Corpuscular Hgb Conc 33.2 g/dL (32-36); Mean Corpuscular Volume 93.5 fL (80-100); Mean Platelet Volume 9.9 fL (7.4-10.4); Platelet Count 212 K/uL (130-400); RDW Coefficient of Variation 13.1 % (11.5-14.5); RDW Standard Deviation 44.9 fL (36.4-46.3); Red Blood Count 4.02 M/uL (4.2-5.4); White Blood Count 7.59 K/uL (4.8-10.8)
[2018-11-29 07:21] LABS: BUN Creatinine Ratio 7.3 (10-20); Calcium 7.8 mg/dl (8.5-10.1); Creatinine Clr Calc Pharmacy 51.5 ml/min; Est GFR (African American) 63.6; Est GFR (Non-African American) 54.9; Potassium 3.7 mmol/L (3.5-5.1)
[2018-11-29] MEDS: SODIUM CHLORIDE 0.9% 1000ML 1,000 ML IV SCH (07:27)
[2018-11-29] MEDS: NIFEdipine 10 MG CAP PO SCH ×3 (07:46→17:56)
--- NOTE | 2018-11-29 08:27 | Gastrointestinal Consultation ---
Date of Consultation November 29, 2018 Assessment & Plan (1) Diverticulitis: 58 year old female with history of dyslipidemia, HTN, CKD, GERD, IBS, gastroparesis who presented from PCP office for failed outpatient therapy for diverticulitis w/ persistent lower abdominal pain. She had a CT scan on 11/22 at [facility] with evidence of moderate constipation and inflammatory stranding and bowel wall thickening involving the descending colon at site of diverticula compatible with acute diverticulitis. She is afebrile w/o leukocytosis but does note mild persistent lower abdominal pain since admission - Clear liquid diet as tolerated - Low residue diet for 6 weeks - Then high fiber diet indefinitely - Continue IV ABX - Would transition to PO Cipro/Flagyl at discharge - IV analgesia PRN - IV antiemetics PRN - Miralax 1 capful daily - Can continue Bentyl 10 mg three times daily as needed - Low FODMAPs diet - She tells me this is her third/fourth episode of diverticulitis - Consider general surgery evaluation - Will sign off. Thank you for allowing us to participate in the care of this patient. Please call with any acute changes, questions or concerns. Please see addendum below with additional recommendation from my supervising physician. Present on Admission?: Yes Supervising Physician Co-Signing Physician Notes I have performed a history and physical examination of this patient and reviewed the electronic medical record. Specifically, on physical examination there is LLQ tenderness. I have discussed the case with CALVIN Rome. The above note reflects my findings, conclusions, and recommendations. Rico Perez MD History of Present Illness Reason for Consultation: diverticulitis Requesting Physician: Wiley Attending Physician: Rebeca Jama MD History of Present Illness 58 year old female with history of dyslipidemia, HTN, CKD, GERD, IBS, gastroparesis and others below who was admitted from PCP office for persistent abdominal pain - GI asked to evaluate for diverticulitis. Pt was seen and evaluated, chart reviewed. She notes mid October she developed abdominal pain and fever that prompted an ED visit. At that time, CT called mild uncomplicated diverticulitis and she was sent home with a course of BID Augmentin. She had followed up with her PCP w/ mention of persistent symptoms which prompted ABX therapy change to Cipro/Flagyl and repeat CT imaging. CT 11/22/18: Nonobstructive bowel gas pattern. Marked stool throughout the colon including the right colon which may be seen in slow bowel transit. Normal appendix within the right lower quadrant. Inflammatory stranding and bowel wall thickening involving the descending colon at site of diverticula compatible with acute diverticulitis. No associated abscess or perforation identified. CT 10/26/18: Study limited by the lack of intravenous and oral contrastNo evidence of bowel obstruction. No evidence of free air No renal, ureteral, or bladder calculi identified Very subtle thickening of the left transversalis fascia and minimal edema within the left pericolonic fat at the mid descending colon level. Given the clinical history, the findings may represent minimal diverticulitis EGD 2017: normal Colonoscopy 2017: diverticulosis, hemorrhiods Allergies Allergy/AdvReac Type Severity Reaction Status Date / Time levofloxacin Allergy Severe swelling Verified 11/29/18 10:09 tongue and throat per [facility] montelukast Allergy Severe THROAT Verified 10/26/18 11:42 SWELLS venlafaxine Allergy Severe edema Verified 10/26/18 11:42 airway per [facility] records gabapentin Allergy Unknown PSYCH Verified 10/26/18 11:42 COMPLICATIONS risperidone Allergy Unknown EDEMA Verified 10/26/18 11:42 AIRWAY mivacurium AdvReac Mild "DOESN'T Verified 10/26/18 11:42 AGREE WITH ME" paroxetine AdvReac Mild INCREASED Verified 10/26/18 11:42 PANIC ATTACKS Azithromycin PACK Allergy Unknown Uncoded 10/26/18 11:42 Home Medications Home Medications Medication Instructions Recorded Confirmed Type atenolol 50 mg PO BID 10/26/18 11/28/18 History dicyclomine 10 mg PO TID PRN 10/26/18 11/28/18 History fluticasone propionate 2 spray INTRANASAL DAILY 10/26/18 11/28/18 History ondansetron HCl [Zofran] 4 mg PO Q6H PRN #10 tab 10/26/18 11/28/18 Rx rosuvastatin 20 mg PO HS 10/26/18 11/28/18 History albuterol sulfate 2 puff INHALATION QID PRN 11/28/18 11/28/18 History clonazepam 2 mg PO HS 11/28/18 11/28/18 History cyclobenzaprine 10 mg PO HS PRN 11/28/18 11/28/18 History escitalopram oxalate 20 mg PO DAILY 11/28/18 11/28/18 History esomeprazole magnesium 40 mg PO DAILY 11/28/18 11/28/18 History fluticasone propion-salmeterol 2 inh INHALATION DAILY 11/28/18 11/28/18 History [Advair Diskus] montelukast 10 mg PO PM 11/28/18 11/28/18 History nifedipine 10 mg PO TIDM 11/28/18 11/28/18 History Patient History Medical History Tobacco use (Chronic) Lymphocytic colitis (Chronic) GERD (gastroesophageal reflux disease) (Chronic) Bipolar depression (Chronic) Dyslipidemia (Chronic) HTN (hypertension) (Chronic) Asthma (Chronic) Adnexal mass (Resolved) "? dermoid noted on CT pelvis 11/14/13" History of positive PPD (Chronic) "treated with ? INH" Diverticulosis (Chronic) Abdominal pain (Acute) Stage III chronic kidney disease (Chronic) Surgical History Hx of tonsillectomy (Chronic) History of esophagogastroduodenoscopy (EGD) (Chronic) 10/19/16 - normal esophagus, stomach and duodenum History of colonoscopy (Chronic) 10/19/16 - multiple diverticula in sigmoid colon, internal hemorrhoids No pertinent past surgical history Family History Other Cancer Heart disease Hypertension Kidney disease Social History Preferred Language: Chinese Communication Ability: Effective Human Relations Professor Required: No Beliefs That Will Affect Care: None Current Living Situation: Spouse Other Information That Helps Us Care for You: No Feels Safe at Home: Yes Safety Concerns: Feels Safe At This Time Smoking Status: Current every day smoker Tobacco Type: cigarettes ; Cigarettes Per Day: 4-5 a day ; Do You Dip or Chew Tobacco: No ; Second Hand Exposure: No ; Tobacco Cessation Education Requested by Patient: No Hx Alcohol Use: No Hx Substance Use: No Review of Systems Constitutional: no fever, no chills and no fatigue Respiratory: no cough and no dyspnea Cardiovascular: no chest pain and no radiating jaw, neck or arm pain Gastrointestinal: + abdominal pain, + nausea and + diarrhea/loose stools; no heartburn, no coffee ground emesis, no hematemesis, no change in bowel habits, no blood in stools and no melena Genitourinary: + dysuria and + urinary frequency Physical Exam Constitutional: well developed and well nourished; no acute distress and not ill appearing Neck: trachea midline Respiratory: normal respiratory effort, lungs clear to auscultation Cardiovascular: Rate/Rhythm: regular rate and regular rhythm Gastrointestinal (Abdomen): normal bowel sounds, soft, nontender, no hepatosplenomegaly Results & Data Vital Signs (Past 12 Hours) Vital Signs Temp Pulse Pulse Resp BP Pulse Ox 11/29/18 07:30 36.8 C 58 L 58 L 16 116/72 98 11/29/18 01:31 57 L 18 109/60 97 11/28/18 22:10 36.6 C 58 L 18 98/58 L 97 11/28/18 20:26 52 L 102/57 L Laboratory Results 11/29/18 11/29/18 11/28/18 Range/Units 06:34 06:34 Unknown WBC 7.59 (4.8-10.8) K/uL RBC 4.02 L (4.2-5.4) M/uL Hgb 12.5 (12.0-16.0) g/dL Hct 37.6 (37-47) % MCV 93.5 (80-100) fL MCH 31.1 (25-34) pg MCHC 33.2 (32-36) g/dL RDW Std Deviation 44.9 (36.4-46.3) fL RDW Coeff of [place] 13.1 (11.5-14.5) % Plt Count 212 (130-400) K/uL MPV 9.9 (7.4-10.4) fL Immature Gran % (Auto) % Neut % (Auto) % Lymph % (Auto) % Weld % (Auto) % Eos % (Auto) % Baso % (Auto) % Immature Gran # (Auto) (0.00-0.02) K/uL Neut # (Auto) (1.4-6.5) K/uL Lymph # (Auto) (1.2-3.4) K/uL Weld # (Auto) (0.11-0.59) K/uL Eos # (Auto) (0-0.5) K/uL Baso # (Auto) (0-0.2) K/uL PT (9.0-12.0) Seconds INR (0.9-1.1) APTT (21.0-31.0) Seconds PTT Ratio Sodium 144 (136-145) mmol/L Potassium 3.7 (3.5-5.1) mmol/L Chloride 113 H (98-107) mmol/L Carbon Dioxide 27 (21-32) mmol/L Anion Gap 4.0 (3-11) BUN 8 D (7-18) mg/dl Creatinine 1.10 (0.6-1.2) mg/dl Est Cr Clr Drug Dosing 51.5 ml/min Est GFR ( Amer) 63.6 Est GFR (Non-Af Amer) 54.9 BUN/Creatinine Ratio 7.3 L (10-20) Glucose 93 (70-99) mg/dl Calcium 7.8 L (8.5-10.1) mg/dl Total Bilirubin (0.2-1) mg/dl AST (15-37) U/L ALT (12-78) U/L Alkaline Phosphatase (45-117) U/L Total Protein (6.4-8.2) gm/dl Albumin (3.4-5.0) gm/dl Globulin (2.5-4.0) gm/dl Albumin/Globulin Ratio (0.9-2) Urine Color Yellow Urine Appearance Clear (Clear) Urine pH 5.0 (4.5-7.5) Ur Specific [place] 1.012 (1.000-1.030) Urine Protein Negative (Negative) Urine Glucose (UA) Negative (Negative) Urine Ketones Negative (Negative) Urine Blood Negative (Negative) Urine Nitrite Negative (Negative) Urine Bilirubin Negative (Negative) Urine Urobilinogen Negative (Negative) Ur Leukocyte Esterase Negative (Negative) 11/28/18 11/28/18 11/28/18 Range/Units 14:54 14:54 14:54 WBC 8.21 (4.8-10.8) K/uL RBC 4.42 (4.2-5.4) M/uL Hgb 14.0 (12.0-16.0) g/dL Hct 41.4 (37-47) % MCV 93.7 (80-100) fL MCH 31.7 (25-34) pg MCHC 33.8 (32-36) g/dL RDW Std Deviation 44.5 (36.4-46.3) fL RDW Coeff of [place] 12.9 (11.5-14.5) % Plt Count 254 (130-400) K/uL MPV 11.0 H (7.4-10.4) fL Immature Gran % (Auto) 0.1 % Neut % (Auto) 49.5 % Lymph % (Auto) 38.9 % Weld % (Auto) 7.1 % Eos % (Auto) 3.8 % Baso % (Auto) 0.6 % Immature Gran # (Auto) 0.01 (0.00-0.02) K/uL Neut # (Auto) 4.07 (1.4-6.5) K/uL Lymph # (Auto) 3.19 (1.2-3.4) K/uL Weld # (Auto) 0.58 (0.11-0.59) K/uL Eos # (Auto) 0.31 (0-0.5) K/uL Baso # (Auto) 0.05 (0-0.2) K/uL PT 10.5 (9.0-12.0) Seconds INR 1.0 (0.9-1.1) APTT 28.2 (21.0-31.0) Seconds PTT Ratio 1.0 Sodium 138 (136-145) mmol/L Potassium 3.6 (3.5-5.1) mmol/L Chloride 107 (98-107) mmol/L Carbon Dioxide 26 (21-32) mmol/L Anion Gap 6.0 (3-11) BUN 13 (7-18) mg/dl Creatinine 1.25 H (0.6-1.2) mg/dl Est Cr Clr Drug Dosing 45.4 ml/min Est GFR ( Amer) 54.5 Est GFR (Non-Af Amer) 47.0 BUN/Creatinine Ratio 10.6 (10-20) Glucose 81 (70-99) mg/dl Calcium 9.0 (8.5-10.1) mg/dl Total Bilirubin 0.4 (0.2-1) mg/dl AST 18 (15-37) U/L ALT 17 (12-78) U/L Alkaline Phosphatase 55 (45-117) U/L Total Protein 7.1 (6.4-8.2) gm/dl Albumin 3.7 (3.4-5.0) gm/dl Globulin 3.4 (2.5-4.0) gm/dl Albumin/Globulin Ratio 1.1 (0.9-2) Urine Color Urine Appearance (Clear) Urine pH (4.5-7.5) Ur Specific [place] (1.000-1.030) Urine Protein (Negative) Urine Glucose (UA) (Negative) Urine Ketones (Negative) Urine Blood (Negative) Urine Nitrite (Negative) Urine Bilirubin (Negative) Urine Urobilinogen (Negative) Ur Leukocyte Esterase (Negative)
[2018-11-29] MEDS: FLUTICASONE/SALMETEROL (ADVAIR) 500/50 INH 14 PUFF INH SCH ×2 (09:21→20:30)
[2018-11-29] MEDS: FLUTICASONE PROPIONATE NA SPR 16 GM BTL NAE SCH (09:23)
[2018-11-29] MEDS: NICOTINE 14 MG/24 HR PATCH TD SCH (09:24)
[2018-11-29] MEDS: ATENOLOL 50 MG TABLET PO SCH ×2 (09:26→20:31)
[2018-11-29] MEDS: ESCITALOPRAM OXALATE 20 MG TAB PO SCH (09:29)
[2018-11-29] MEDS: PANTOprazole 40 MG TAB PO SCH (09:29)
--- NOTE | 2018-11-29 13:19 | Hospitalist Progress Note ---
Date of Service November 29, 2018 Assessment & Plan (1) Diverticulitis: (2) Abdominal pain: Pt is 58 y/o F with PMH HTN, dyslipidemia, bipolar depression, CKD III, GERD, h/o lymphocytic colitis, asthma presented for abdominal pain and diverticulitis x 1 month. Initially with fever/chills. N/V, lower abddominal pain has continued. 10/26/[address] abdomen pelvis which showed possible diverticulitis and was started on Augmentin 875 twice daily. 10/29/2018 Flagyl was added. 11/20/2018 still having lower quadrant pain and was started on Cipro and Flagyl and had WBC:10. 11/22/[address] abdomen pelvis which showed diverticulitis descending colon with no abscess or perforation noted. Has been on intravenous Flagyl and Cipro Cautious amount of IV fluid Has been tolerating regular diet Clinically a lot better without any acute symptoms Advised to more ambulation Likely discharge tomorrow (3) Lymphocytic colitis: H/O lymphocytic colitis. Hx esophageal spasms. -Continue nifedipine -No acute symptoms (4) HTN (hypertension): -Continue atenolol -Blood pressure remains stable (5) Dyslipidemia: -Continue statin (6) Stage III chronic kidney disease: Cr: 1.2. Baseline Cr ~1.1 -Monitor renal functions -Avoid nephrotoxic agents when possible -Creatinine has been normalized (7) Asthma: Stable -Continue Advair, Singulair. Continue albuterol -No acute symptoms (8) GERD (gastroesophageal reflux disease): -Continue PPI (9) Bipolar depression: -Continue Lexapro, Klonopin HS (10) Tobacco use: Reports has cut back to several cigarettes a day -Nicotine patch -Smoking cessation encouraged DVT Prophylaxis -SCDs Follows with Dr Zhang for routine care Remains stable and is improving Likely discharge tomorrow Subjective 11/29 The patient was seen and examined in medical floor He was admitted with the diverticulitis and failure as an outpatient treatment Has been feeling a lot better this morning Denies any significant pain or distention of the abdomen Bowel has not moved yet Review of Systems Review of Systems: All systems reviewed and unremarkable except as noted below Gastrointestinal: + abdominal pain (Almost gone); no bloating, no nausea and no vomiting Physical Exam Physical Exam: Lying in bed without any acute symptoms Constitutional: well developed and well nourished; no acute distress and not ill appearing Eyes: PERRL, conjunctivae normal, anicteric sclerae ENMT: external ear and nose normal, oropharynx normal Neck: trachea midline, no thyromegaly trachea midline Respiratory: normal respiratory effort Auscultation: + diminished lung sounds Cardiovascular: Rate/Rhythm: regular rate and regular rhythm Gastrointestinal (Abdomen): Inspection/Auscultation: abdomen normal to inspection; abdomen not distended Percussion/Palpation: + abdomen tender (Minimally tender lower quadrants) and abdomen soft Musculoskeletal: No acute arthritis in any of the joints Neurologic: moves all extremities; no focal motor deficits Psychiatric: A+Ox3, euthymic affect Results & Data Vital Signs (Past 12 Hours) Vital Signs Temp Pulse Pulse Pulse Resp BP Pulse Ox 11/29/18 11:34 37 C 66 18 116/72 98 11/29/18 09:17 58 L 11/29/18 07:30 36.8 C 58 L 58 L 16 116/72 98 11/29/18 01:31 57 L 18 109/60 97 Laboratory Results Short CBC 11/28/18 11/29/18 Range/Units 14:54 06:34 WBC 8.21 7.59 (4.8-10.8) K/uL Hgb 14.0 12.5 (12.0-16.0) g/dL Hct 41.4 37.6 (37-47) % Plt Count 254 212 (130-400) K/uL BMP 11/28/18 11/29/18 14:54 06:34 Sodium 138 144 Potassium 3.6 3.7 Chloride 107 113 H Carbon Dioxide 26 27 BUN 13 8 D Creatinine 1.25 H 1.10 Glucose 81 93 Calcium 9.0 7.8 L Liver Function 11/28/18 Range/Units 14:54 Total Bilirubin 0.4 (0.2-1) mg/dl AST 18 (15-37) U/L ALT 17 (12-78) U/L Alkaline Phosphatase 55 (45-117) U/L Albumin 3.7 (3.4-5.0) gm/dl Urine 11/28/18 Range/Units Unknown Urine Color Yellow Urine Appearance Clear (Clear) Urine pH 5.0 (4.5-7.5) Ur Specific [place] 1.012 (1.000-1.030) Urine Protein Negative (Negative) Urine Glucose (UA) Negative (Negative) Medications Administered Current Inpatient Medications Acetaminophen (Tylenol) 650 mg PO Q4H PRN PRN Reason: pain/fever Stop: 12/28/18 13:27 Last Admin: 11/29/18 11:16 Dose: 650 mg Documented by: Albuterol (Ventolin Hfa) 2 puffs INH QID PRN PRN Reason: Shortness Of Breath Stop: 12/28/18 14:46 Last Admin: 11/29/18 01:54 Dose: 2 puffs Documented by: Atenolol (Tenormin) 50 mg PO BID [facility] Stop: 12/28/18 20:59 Last Admin: 11/29/18 09:26 Dose: Not Given Documented by: Clonazepam (Klonopin) 2 mg PO HS JOSE Stop: 12/28/18 20:59 Last Admin: 11/28/18 20:36 Dose: 2 mg Documented by: Cyclobenzaprine HCl (Flexeril) 10 mg PO HS PRN PRN Reason: Muscle Spasm Stop: 12/28/18 14:46 Dicyclomine HCl (Bentyl) 10 mg PO TID PRN PRN Reason: Abdominal Discomfort Stop: 12/28/18 14:46 Escitalopram Oxalate (Lexapro Tab) 20 mg PO DAILY [facility] Stop: 12/29/18 08:59 Last Admin: 11/29/18 09:29 Dose: 20 mg Documented by: Fluticasone Propionate (Flonase) 2 sprays LUZ DAILY [facility] Stop: 12/29/18 08:59 Last Admin: 11/29/18 09:23 Dose: 2 sprays Documented by: Hydromorphone HCl (Dilaudid) 0.5 mg IV Q4H PRN PRN Reason: Moderate Pain Stop: 11/30/18 15:07 Last Admin: 11/28/18 20:35 Dose: 0.5 mg Documented by: Sodium Chloride (Nss 1000ml) 1,000 mls @ 125 mls/hr IV .Q8H [facility] Stop: 11/29/18 14:44 Last Admin: 11/29/18 07:27 Dose: 125 mls/hr Documented by: Piperacillin Sod/Tazobactam (Sod 3.375 gm/ Dextrose) 115 mls @ 28.75 mls/hr IV Q8H [facility]; Protocol Stop: 12/08/18 19:59 Last Admin: 11/29/18 11:24 Dose: 28.8 mls/hr Documented by: Miscellaneous (Remove Nicoderm Patch) 1 ea N/A HS JOSE Stop: 12/28/18 20:59 Last Admin: 11/28/18 20:40 Dose: 1 ea Documented by: Miscellaneous Information (Consult) 1 ea N/A UD JOSE Stop: 12/28/18 15:07 Montelukast Sodium (Singulair) 10 mg PO PM JOSE Stop: 12/28/18 20:59 Last Admin: 11/28/18 20:36 Dose: 10 mg Documented by: Nicotine (Nicoderm Cq) 14 mg TD QAM JOSE Stop: 12/28/18 15:14 Last Admin: 11/29/18 09:24 Dose: 14 mg Documented by: Nifedipine (Procardia) 10 mg PO TIDM JOSE Stop: 12/28/18 16:59 Last Admin: 11/29/18 12:04 Dose: 10 mg Documented by: Ondansetron HCl (Zofran) 4 mg IV Q6H PRN PRN Reason: Nausea Stop: 12/28/18 13:27 Pantoprazole Sodium (Protonix) 40 mg PO DAILY JOSE Stop: 12/29/18 08:59 Last Admin: 11/29/18 09:29 Dose: 40 mg Documented by: Rosuvastatin Calcium (Crestor) 20 mg PO HS JOSE Stop: 12/28/18 20:59 Last Admin: 11/28/18 20:36 Dose: 20 mg Documented by: Fluticasone/Salmeterol (Advair Diskus 500/50) 1 puffs INH BID JOSE Stop: 12/28/18 20:59 Last Admin: 11/29/18 09:21 Dose: 1 puffs Documented by:
[2018-11-29] MEDS: ONDANSETRON INJ 2 MG/ML 2 ML VIAL IV PRN ×2 (15:32→23:56)
[2018-11-29] MEDS: ROSUVASTATIN CALCIUM 20 MG TAB PO SCH (20:29)
[2018-11-29] MEDS: clonazePAM 1 MG TAB PO SCH (20:29)
[2018-11-29] MEDS: MONTELUKAST SODIUM 10 MG TABLET PO SCH (20:30)
[2018-11-30] MEDS: PIPERACILLIN/TAZOBACTAM 3.375 GM in DEXTROSE 5% 100 ML IV SCH (04:57)
[2018-11-30 06:34] LABS: Basophils # (auto) 0.04 K/uL (0-0.2); Basophils % (auto) 0.5 %; Eosinophils # (auto) 0.27 K/uL (0-0.5); Eosinophils % (auto) 3.6 %; Hematocrit (blood only) 40.5 % (37-47); Hemoglobin 13.5 g/dL (12.0-16.0); Immature Granulocytes # (auto) 0.01 K/uL (0.00-0.02); Immature Granulocytes % (auto) 0.1 %; Lymphocytes # (auto) 2.38 K/uL (1.2-3.4); Lymphocytes % (auto) 31.6 %; Mean Corpuscular Hemoglobin 31.1 pg (25-34); Mean Corpuscular Hgb Conc 33.3 g/dL (32-36); Mean Corpuscular Volume 93.3 fL (80-100); Mean Platelet Volume 11.2 fL (7.4-10.4); Monocytes # (auto) 0.74 K/uL (0.11-0.59); Monocytes % (auto) 9.8 %; Neutrophils % (auto) 54.4 %; Platelet Count 232 K/uL (130-400); RDW Standard Deviation 44.5 fL (36.4-46.3); Red Blood Count 4.34 M/uL (4.2-5.4); White Blood Count 7.54 K/uL (4.8-10.8)
[2018-11-30 07:08] LABS: Calcium 8.6 mg/dl (8.5-10.1); Creatinine Clr Calc Pharmacy 60.3 ml/min; Est GFR (Non-African American) 66.4; Potassium 3.4 mmol/L (3.5-5.1)
[2018-11-30] MEDS ORDERED: POTASSIUM CHLORIDE 20 MEQ TABCR PO STA (08:46)
[2018-11-30] MEDS: NIFEdipine 10 MG CAP PO SCH ×2 (08:58→13:09)
[2018-11-30] MEDS: FLUTICASONE PROPIONATE NA SPR 16 GM BTL NAE SCH (08:59)
[2018-11-30] MEDS: FLUTICASONE/SALMETEROL (ADVAIR) 500/50 INH 14 PUFF INH SCH (08:59)
[2018-11-30] MEDS: ESCITALOPRAM OXALATE 20 MG TAB PO SCH (09:00)
[2018-11-30] MEDS: NICOTINE 14 MG/24 HR PATCH TD SCH (09:01)
[2018-11-30] MEDS: PANTOprazole 40 MG TAB PO SCH (09:02)
[2018-11-30] MEDS: ATENOLOL 50 MG TABLET PO SCH (09:02)
--- NOTE | 2018-11-30 11:22 | Hospitalist Progress Note ---
Date of Service November 30, 2018 Assessment & Plan (1) Diverticulitis: Management is as below (2) Abdominal pain: Pt is 58 y/o F with PMH HTN, dyslipidemia, bipolar depression, CKD III, GERD, h/o lymphocytic colitis, asthma presented for abdominal pain and diverticulitis x 1 month. Initially with fever/chills. N/V, lower abddominal pain has continued. 10/26/[address] abdomen pelvis which showed possible diverticulitis and was started on Augmentin 875 twice daily. 10/29/2018 Flagyl was added. 11/20/2018 still having lower quadrant pain and was started on Cipro and Flagyl and had WBC:10. 11/22/[address] abdomen pelvis which showed diverticulitis descending colon with no abscess or perforation noted. Has been on intravenous Flagyl and Cipro Cautious amount of IV fluid Has been tolerating regular diet Clinically a lot better without any acute symptoms Advised to more ambulation Denies any significant abdominal pain Denies any diarrhea Has been tolerating advance diet Likely be discharged this afternoon on oral antibiotic (3) Lymphocytic colitis: H/O lymphocytic colitis. Hx esophageal spasms. -Continue nifedipine -No acute symptoms (4) HTN (hypertension): -Continue atenolol -Blood pressure remains stable (5) Dyslipidemia: -Continue statin (6) Stage III chronic kidney disease: Cr: 1.2. Baseline Cr ~1.1 -Monitor renal functions -Avoid nephrotoxic agents when possible -Creatinine has been normalized (7) Asthma: Stable -Continue Advair, Singulair. Continue albuterol -No acute symptoms (8) GERD (gastroesophageal reflux disease): -Continue PPI (9) Bipolar depression: -Continue Lexapro, Klonopin HS (10) Tobacco use: Reports has cut back to several cigarettes a day -Nicotine patch -Smoking cessation encouraged DVT Prophylaxis -SCDs Follows with Dr Zhang for routine care Likely discharge this afternoon Subjective 11/29 The patient was seen and examined in medical floor He was admitted with the diverticulitis and failure as an outpatient treatment Has been feeling a lot better this morning Denies any significant pain or distention of the abdomen Bowel has not moved yet 11/30 The patient was seen and examined in medical floor She has been feeling a lot better Her abdominal pain is much improved and she does not have any distention or any nausea/vomiting She has been moving about Will advance to regular diet Review of Systems Review of Systems: All systems reviewed and unremarkable except as noted below Gastrointestinal: + abdominal pain (Almost gone); no bloating, no nausea and no vomiting Physical Exam Physical Exam: No apparent distress at rest Constitutional: well developed and well nourished; no acute distress and not ill appearing Eyes: PERRL, conjunctivae normal, anicteric sclerae ENMT: external ear and nose normal, oropharynx normal Neck: trachea midline, no thyromegaly trachea midline Respiratory: normal respiratory effort Auscultation: + diminished lung sounds Cardiovascular: Rate/Rhythm: regular rate and regular rhythm Gastrointestinal (Abdomen): Inspection/Auscultation: abdomen normal to inspection; abdomen not distended Percussion/Palpation: + abdomen tender (Minimally tender lower quadrants) and abdomen soft Neurologic: moves all extremities; no focal motor deficits Psychiatric: A+Ox3, euthymic affect Results & Data Vital Signs (Past 12 Hours) Vital Signs Temp Pulse Resp BP BP Pulse Ox 11/30/18 11:02 37.4 C 68 16 149/77 H 146/72 H 96 11/30/18 07:30 37.4 C 68 16 146/72 H 96 Laboratory Results Short CBC 11/30/18 Range/Units 06:00 WBC 7.54 (4.8-10.8) K/uL Hgb 13.5 (12.0-16.0) g/dL Hct 40.5 (37-47) % Plt Count 232 (130-400) K/uL BMP 11/30/18 06:00 Sodium 142 Potassium 3.4 L Chloride 111 H Carbon Dioxide 27 BUN 5 L Creatinine 0.94 Glucose 87 Calcium 8.6 Medications Administered Current Inpatient Medications Acetaminophen (Tylenol) 650 mg PO Q4H PRN PRN Reason: pain/fever Stop: 12/28/18 13:27 Last Admin: 11/29/18 11:16 Dose: 650 mg Documented by: Albuterol (Ventolin Hfa) 2 puffs INH QID PRN PRN Reason: Shortness Of Breath Stop: 12/28/18 14:46 Last Admin: 11/29/18 01:54 Dose: 2 puffs Documented by: Atenolol (Tenormin) 50 mg PO BID JOSE Stop: 12/28/18 20:59 Last Admin: 11/30/18 09:02 Dose: 50 mg Documented by: Clonazepam (Klonopin) 2 mg PO HS JOSE Stop: 12/28/18 20:59 Last Admin: 11/29/18 20:29 Dose: 2 mg Documented by: Cyclobenzaprine HCl (Flexeril) 10 mg PO HS PRN PRN Reason: Muscle Spasm Stop: 12/28/18 14:46 Dicyclomine HCl (Bentyl) 10 mg PO TID PRN PRN Reason: Abdominal Discomfort Stop: 12/28/18 14:46 Escitalopram Oxalate (Lexapro Tab) 20 mg PO DAILY JOSE Stop: 12/29/18 08:59 Last Admin: 11/30/18 09:00 Dose: 20 mg Documented by: Fluticasone Propionate (Flonase) 2 sprays LUZ DAILY [facility] Stop: 12/29/18 08:59 Last Admin: 11/30/18 08:59 Dose: 2 sprays Documented by: Hydromorphone HCl (Dilaudid) 0.5 mg IV Q4H PRN PRN Reason: Moderate Pain Stop: 11/30/18 15:07 Last Admin: 11/28/18 20:35 Dose: 0.5 mg Documented by: Piperacillin Sod/Tazobactam (Sod 3.375 gm/ Dextrose) 115 mls @ 28.75 mls/hr IV Q8H [facility]; Protocol Stop: 12/08/18 19:59 Last Infusion: 11/30/18 09:02 Dose: Infused Documented by: Miscellaneous (Remove Nicoderm Patch) 1 ea N/A HS JOSE Stop: 12/28/18 20:59 Last Admin: 11/29/18 20:30 Dose: 1 ea Documented by: Miscellaneous Information (Consult) 1 ea N/A UD JOSE Stop: 12/28/18 15:07 Montelukast Sodium (Singulair) 10 mg PO PM JOSE Stop: 12/28/18 20:59 Last Admin: 11/29/18 20:30 Dose: 10 mg Documented by: Nicotine (Nicoderm Cq) 14 mg TD QAM JOSE Stop: 12/28/18 15:14 Last Admin: 11/30/18 09:01 Dose: Not Given Documented by: Nifedipine (Procardia) 10 mg PO TIDM JOSE Stop: 12/28/18 16:59 Last Admin: 10/18/19 08:58 Dose: 10 mg Documented by: Ondansetron HCl (Zofran) 4 mg IV Q6H PRN PRN Reason: Nausea Stop: 12/28/18 13:27 Last Admin: 11/29/18 23:56 Dose: 4 mg Documented by: Pantoprazole Sodium (Protonix) 40 mg PO DAILY [facility]SE Stop: 12/29/18 08:59 Last Admin: 11/30/18 09:02 Dose: 40 mg Documented by: Rosuvastatin Calcium (Crestor) 20 mg PO HS JOSE Stop: 12/28/18 20:59 Last Admin: 11/29/18 20:29 Dose: 20 mg Documented by: Fluticasone/Salmeterol (Advair Diskus 500/50) 1 puffs INH BID [facility]SE Stop: 12/28/18 20:59 Last Admin: 11/30/18 08:59 Dose: 1 puffs Documented by:
[2018-11-30] MEDS ORDERED: CIPROFLOXACIN 500 MG TAB PO SCH (11:30)
[2018-11-30] MEDS ORDERED: metroNIDAZOLE 500 MG TAB PO SCH ×2 (11:30→12:15)
[2018-11-30] MEDS ORDERED: LACTOBACILLUS ACIDOPHILUS (FLORANEX) TAB PO SCH (17:00)
--- NOTE | 2018-12-01 07:39 | Discharge Summary ---
Date of Service December 01, 2018 Admission HPI Per Admitting Provider Pt is 58 y/o F with PMH HTN, dyslipidemia, bipolar depression, CKD III, GERD, h/o lymphocytic colitis, asthma presented as direct admission for abdominal pain and diverticulitis. Patient was seen in ER on 10/26/2018 for fever, chills, nausea, vomiting, left flank pain and had CT abdomen pelvis which showed possible diverticulitis and was started on Augmentin 875 twice daily. Patient states took that for a few days. Followed up with PCP 10/29/2018 for continued lower abdominal pain and Flagyl was added. Seen by PCP 11/20/2018 still having lower quadrant pain and was started on Cipro and Flagyl and had WBC:10. 11/22/[address] abdomen pelvis which showed diverticulitis descending colon with no abscess or perforation noted. Patient reports has had continued lower abdominal pain which she describes as fairly consistent with intermittent sharp episodes. Also reports lower back aching which has been intermittent. Reports nausea and intermittent vomiting. Complains of diarrhea. Initially had fever in October which has resolved but reports continued chills. Reports in past has had abdominal bloating with colitis. States taking nifedpine for throat spasms. Denies diaphoresis, hematemesis, melena, hematochezia, CALDERA, dizziness, syncope, vision changes, neck pain, CP, SOB, orthopnea, palpitations, cough, sore throat, choking, otalgia, rhinorrhea, paresthesias, weakness, extremity weakness, extremity edema, rashes, urinary symptoms. 10/19/2016: Colonoscopy: Multiple diverticula in sigmoid colon, internal hemorrhoids 10/19/2016: EGD: Normal esophagus and stomach and duodenum. Admission Exam Per Admitting Provider Physical Exam: General: no distress, WDWN Head: normocephalic, atraumatic Eyes: conjunctiva non-injected, anicteric ENT: normal inspection external ears, nose, mucous membranes moist Neck: supple, trachea midline Lungs: clear, no respiratory distress, no wheezing/rhonchi/rales CV: RRR, no murmur, no pretibial edema Abd: normal BS, soft, diffuse tenderness to palpation Ext: no cyanosis, no calf tenderness Neuro: A&O x 3, no focal deficits noted, normal affect Skin: warm, dry Principal Diagnosis Acute diverticulitis of descending colon, hypertension, stable asthma, chronic kidney disease stage III Discharge Exam Constitutional well developed and well nourished; no acute distress and not ill appearing Eyes PERRL, conjunctivae normal, anicteric sclerae ENMT external ear and nose normal, oropharynx normal Neck trachea midline, no thyromegaly trachea midline Respiratory normal respiratory effort Auscultation: + diminished lung sounds Cardiovascular Rate/Rhythm: regular rate and regular rhythm Gastrointestinal (Abdomen) Inspection/Auscultation: abdomen normal to inspection; abdomen not distended Percussion/Palpation: + abdomen tender (Minimally tender lower quadrants) and abdomen soft Neurologic moves all extremities; no focal motor deficits Psychiatric A+Ox3, euthymic affect Discharge Data Allergies Allergy/AdvReac Type Severity Reaction Status Date / Time levofloxacin Allergy Severe swelling Verified 11/29/18 10:09 tongue and throat per [facility] montelukast Allergy Severe THROAT Verified 10/26/18 11:42 SWELLS venlafaxine Allergy Severe edema Verified 10/26/18 11:42 airway per [facility] records gabapentin Allergy Unknown PSYCH Verified 10/26/18 11:42 COMPLICATIONS risperidone Allergy Unknown EDEMA Verified 10/26/18 11:42 AIRWAY lactose AdvReac Intermediate Nausea Verified 11/29/18 12:53 paroxetine AdvReac Mild INCREASED Verified 10/26/18 11:42 PANIC ATTACKS azithromycin AdvReac "DOESNT Verified 11/29/18 20:27 AGREE WITH ME" Consultations 11/28/18 14:51 Consult Gastroenterology Routine Hospital Course (1) Diverticulitis: Management is as below (2) Abdominal pain: Pt is 58 y/o F with PMH HTN, dyslipidemia, bipolar depression, CKD III, GERD, h/o lymphocytic colitis, asthma presented for abdominal pain and diverticulitis x 1 month. Initially with fever/chills. N/V, lower abddominal pain has continued. 10/26/[address] abdomen pelvis which showed possible diverticulitis and was started on Augmentin 875 twice daily. 10/29/2018 Flagyl was added. 11/20/2018 still having lower quadrant pain and was started on Cipro and Flagyl and had WBC:10. 11/22/[address] abdomen pelvis which showed diverticulitis descending colon with no abscess or perforation noted. Has been on intravenous Flagyl and Cipro Cautious amount of IV fluid Has been tolerating regular diet Clinically a lot better without any acute symptoms Advised to more ambulation Denies any significant abdominal pain Denies any diarrhea Has been tolerating advance diet Likely be discharged this afternoon on oral antibiotic (3) Lymphocytic colitis: H/O lymphocytic colitis. Hx esophageal spasms. -Continue nifedipine -No acute symptoms (4) HTN (hypertension): -Continue atenolol -Blood pressure remains stable (5) Dyslipidemia: -Continue statin (6) Stage III chronic kidney disease: Cr: 1.2. Baseline Cr ~1.1 -Monitor renal functions -Avoid nephrotoxic agents when possible -Creatinine has been normalized (7) Asthma: Stable -Continue Advair, Singulair. Continue albuterol -No acute symptoms (8) GERD (gastroesophageal reflux disease): -Continue PPI (9) Bipolar depression: -Continue Lexapro, Klonopin HS (10) Tobacco use: Reports has cut back to several cigarettes a day -Nicotine patch -Smoking cessation encouraged DVT Prophylaxis -SCDs Follows with Dr Zhang for routine care Likely discharge this afternoon Total Time Total Time Spent Total Time Spent (In Minutes): 35 minutes Total Time Includes: Examination of the Patient, Discharge Planning, Medication Reconciliation and Communication With Other Providers Discharge Plan Discharge Items Patient Disposition: Home - Self-Care Reason For Visit: DIVERTICULITIS Discharge Diagnosis: Acute diverticulitis of descending colon, hypertension, stable asthma, chronic kidney disease stage III Condition on Discharge: Good Activity: Resume your previous activity Non-emergency contact: Primary Care Provider Call non-emergency contact if: you have any medication questions and your symptoms worsen Follow-up/Referrals: Vishnu Zhang MD [Primary Care Provider] - 12/04/18 12:15 pm (Your appointment is with Dr. Little. Dr. Zhang is not available.) Diet: Regular Addtl Attending Provider Instructions: Finish the course of antibiotic Keep appointment with your scientific informatics analyst Pending Studies at Discharge: No Stand-Alone Forms: [facility] Medications and DC Order Prescriptions: New metronidazole 500 mg Tablet 500 mg PO TID 7 Days Qty: 21 RF: 0 ciprofloxacin HCl 500 mg Tablet 500 mg PO BID 7 Days Qty: 14 RF: 0 nicotine 7 mg/24 hr Patch 24 Hour 14 mg transdermal QAM 30 Days Qty: 30 RF: 0 Lactobacillus acidoph-L.bulgar [Floranex] 1 million cell Tablet 2 tab PO TIDM 10 Days Qty: 60 RF: 0 Continued fluticasone propionate 50 mcg/actuation spray,suspension 2 spray intranasal DAILY RF: 0 dicyclomine 10 mg capsule 10 mg PO TID PRN (Reason: Abdominal Discomfort) RF: 0 atenolol 50 mg tablet 50 mg PO BID RF: 0 rosuvastatin 20 mg tablet 20 mg PO HS RF: 0 ondansetron HCl [Zofran] 4 mg tablet 4 mg PO Q6H PRN (Reason: nausea and vomiting) Qty: 10 RF: 0 cyclobenzaprine 10 mg tablet 10 mg PO HS PRN (Reason: Muscle Spasm) RF: 0 clonazepam 2 mg tablet 2 mg PO HS RF: 0 fluticasone propion-salmeterol [Advair Diskus] 500-50 mcg/dose blister with device 2 inh inhalation DAILY RF: 0 albuterol sulfate 90 mcg/actuation Hfa Aerosol Inhaler 2 puff INHALATION QID PRN (Reason: Shortness Of Breath) RF: 0 escitalopram oxalate 20 mg tablet 20 mg PO DAILY RF: 0 nifedipine 10 mg Capsule 10 mg PO TIDM RF: 0 esomeprazole magnesium 40 mg capsule,delayed release(DR/EC) 40 mg PO DAILY RF: 0 montelukast 10 mg Tablet 10 mg PO PM RF: 0 Discharge Orders: Discharge Order (Routine); Ordered 11/30/18 Ordered By: Rebeca Candelario/Other Patient Handouts: Diverticulosis Diverticulitis Admission Data Admit Date/Time: 11/28/18 13:52 Attending Provider: Rebeca Jama Admit Provider: Tad Santos Primary Care Provider: Vishnu Zhang Other Providers: Rico Perez ; Tad Santos Other Interventions: Discharge Summary Assessment (RN) Last Done: 11/30/18 11:02 DC Date/Time DO NOT enter until pt leaves facility: 11/30/18 13:55
== END 2018-11-30 13:55 | disposition home or self-care (01) | DRG 392 ==
LOC: SUATTDRO 13:52 → 3N 13:52